=== PATIENT | male | born 1970 | race Caucasian/White ===

== ENCOUNTER 2017-05-04 08:53 | Emergency (ER) | payer OTHER ==
[2017-05-04 09:04] VITALS: BP 113/77; PULSE 71; TEMP 98.2; BMI 29.7
--- NOTE | 2017-05-04 09:41 | PDOC ---
History of Present Illness - General Chief Complaint: Toothache Stated Complaint: TOOTHACHE Time Seen by Provider: 05/04/17 09:12 History Source: Patient Exam Limitations: No Limitations - History of Present Illness Initial Comments: 05/04/17 09:52 Chief complaint: Toothache Patient 46-year-old male, on methadone, history of depression who has a toothache for one week with a broken tooth. Patient states he has an appointment with a dentist on Saturday. No fever, no difficulty swallowing or speaking. he has not taken any pain medicine except for Tylenol GENERAL/CONSTITUTIONAL: No fever, weakness. dizziness HEAD, EYES, EARS, NOSE AND THROAT: No change in vision. No ear pain or discharge. No sore throat.+ Toothache CARDIOVASCULAR: No chest pain RESPIRATORY: No shortness of breath or cough GASTROINTESTINAL: No pain, nausea, vomiting, diarrhea or constipation GENITOURINARY: No dysuria MUSCULOSKELETAL: No neck or back pain SKIN: No rash NEUROLOGIC: No headache, vertigo, loss of consciousness, or loss of sensation. GENERAL: The patient is awake, alert, and fully oriented, in no acute distress. HEAD: Normal with no signs of trauma. EYES: Pupils equal, round and reactive to light, sclera anicteric, conjunctiva clear. ENT: pharynx: no erythema, no exudate, uvula midline, +dental decay with broken tooth upper right NECK: supple CHEST: clear, nontender, rr ABD: soft, nontender EXTREMITIES: Normal range of motion, no edema. NEUROLOGICAL: Normal speech, normal gait. SKIN: Warm, Dry Past History - Past Medical History Allergies/Adverse Reactions: Allergies Allergy/AdvReac Type Severity Reaction Status Date / Time amoxicillin Allergy Nausea Verified 05/04/17 09:04 Home Medications: Ambulatory Orders Methadone [Dolophine -] 150 mg PO DAILY@0600 tablet 02/10/15 Sertraline HCl [Zoloft] 100 mg PO DAILY 03/01/15 Zolpidem Tartrate [Ambien] 10 mg PO HS 03/01/15 Omeprazole 20 mg PO DAILY 06/22/15 Alprazolam [Xanax] 0.5 mg PO Q8H PRN #0 tablet 06/27/15 Bacitracin/Polymyxin Ointment [Polysporin Ointment -] 1 applic TP BID #30 grams 02/08/16 Ibuprofen [Motrin -] 600 mg PO Q6H PRN #0 tablet 06/27/15 Sulfamethoxazole/Trimethoprim [Bactrim DS -] 1 each PO BID #20 tablet 06/27/15 Clindamycin [Cleocin -] 300 mg PO QID #28 capsule 05/04/17 Ibuprofen [Motrin -] 600 mg PO QID #28 tablet 05/04/17 Anemia: No Asthma: No Cancer: No Cardiac Disorders: No CVA: No COPD: No CHF: No Dementia: No Diabetes: No GI Disorders: No Disorders: No HTN: No Hypercholesterolemia: No Kidney Stones: No Liver Disease: No Psychiatric Problems: Yes (depression) Seizures: No Thyroid Disease: No - Surgical History Abdominal Surgery: No Appendectomy: No Cardiac Surgery: No Cholecystectomy: No Lung Surgery: No Neurologic Surgery: No Orthopedic Surgery: Yes (Left eye socket metal plate) - Reproductive History Testicular Surgery: No - Suicide/Smoking/Psychosocial Hx Smoking History: Never smoked Have you smoked in the past 12 months: Yes Number of Cigarettes Smoked Daily: 5 'Breaking Loose' booklet given: 06/22/15 Hx Alcohol Use: No Drug/Substance Use Hx: No Substance Use Type: Cocaine Hx Substance Use Treatment: Yes *Physical Exam - Vital Signs Last Vital Signs Temp Pulse Resp BP Pulse Ox 98.2 F 71 20 113/77 98 05/04/17 09:01 05/04/17 09:01 05/04/17 09:01 05/04/17 09:01 05/04/17 09:01 Medical Decision Making - Medical Decision Making 05/04/17 09:56 46-year-old male with toothache for one week, broken tooth, history of depression and on methadone, will give antibiotics, cannot take amoxicillin will give clindamycin and a prescription for Motrin, discussed with patient and he agreed with plan. He says he has an appointment with the dentist on Saturday05/04/17 10:54 I stop done outpatient no recent narcotics Discussed issues, findings, results, applicable medications and treatments and follow-up. All these were understood and all questions were answered *DC/Admit/Observation/Transfer Diagnosis at time of Disposition: Toothache - Discharge Dispostion Disposition: HOME Condition at time of disposition: Stable Admit: No - Prescriptions Prescriptions: Clindamycin [Cleocin -] 300 mg PO QID #28 capsule Ibuprofen [Motrin -] 600 mg PO QID #28 tablet - Referrals Referrals: Krish Kitchen MD [Primary Care Provider] - - Patient Instructions Printed Discharge Instructions: DI for Dental Pain Additional Instructions: Take the clindamycin 300 mg every 6 hours Take the Motrin 600 mg every 8 hours for pain Take acidophilus as discussed See dentist on Saturday Return to the ER if fever, difficulty breathing, swallowing or drooling - Post Discharge Activity
[2017-05-04] MEDS ORDERED: IBUPROFEN 600 MG TABLET (FP) PO ONE ×2 (09:50→09:56)
== END 2017-05-04 10:07 | disposition home or self-care (01) ==
LOC: JERFT 08:53
DX: K08.89 Other specified disorders of teeth and supporting structures (principal); F32.9 Major depressive disorder, single episode, unspecified; F11.20 Opioid dependence, uncomplicated
CPT/HCPCS: 99281-25

== ENCOUNTER 2018-09-22 10:50 | Emergency (ER) | payer OTHER ==
[2018-09-22 11:02] VITALS: TEMP 97.9; BMI 34.8
--- NOTE | 2018-09-22 11:23 | PDOC ---
History of Present Illness - General Chief Complaint: Chest Pain Stated Complaint: CHEST PAIN Time Seen by Provider: 09/22/18 11:23 History Source: Patient Exam Limitations: No Limitations - History of Present Illness Initial Comments: 09/22/18 11:53 48 year old male with PMH HTN, cocaine abuse, heroine abuse, methadone use, nicotine abuse, obesity presented to ED for chest pain since yesterday. Pt located his chest pain to his left chest, non-radiating, aggravated by exertion , alleviated by rest, lasting 10 minutes each time. He admitted to associated shortness of breath and palpitations. He denied fever, chills, nausea, vomiting , back pain, abdominal pain. Pt stated he had Lisinopril added to his medication regiment last Saturday when he was in Dr. Kitchen's office for a medication refill appointment. Pt denied current chest pain. Social: Cocaine abuse - last used x6 days ago Heroine abuse - last used x6 days ago Denied ETOH use. 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 Kitchne Past History - Past Medical History Allergies/Adverse Reactions: Allergies Allergy/AdvReac Type Severity Reaction Status Date / Time amoxicillin Allergy Nausea Verified 09/22/18 10:57 Home Medications: Ambulatory Orders Methadone [Dolophine -] 150 mg PO DAILY@0600 tablet 02/10/15 Sertraline HCl [Zoloft] 100 mg PO DAILY 03/01/15 Zolpidem Tartrate [Ambien] 10 mg PO HS 03/01/15 Omeprazole 20 mg PO DAILY 06/22/15 Alprazolam [Xanax] 0.5 mg PO Q8H PRN #0 tablet 06/27/15 Bacitracin/Polymyxin Ointment [Polysporin Ointment -] 1 applic TP BID #30 grams 06/27/15 Ibuprofen [Motrin -] 600 mg PO Q6H PRN #0 tablet 06/27/15 Sulfamethoxazole/Trimethoprim [Bactrim DS -] 1 each PO BID #20 tablet 06/27/15 Clindamycin [Cleocin -] 300 mg PO QID #28 capsule 05/04/17 Ibuprofen [Motrin -] 600 mg PO QID #28 tablet 05/04/17 Anemia: No Asthma: No Cancer: No Cardiac Disorders: No CVA: No COPD: No CHF: No Dementia: No Diabetes: No GI Disorders: No Disorders: No HTN: No Hypercholesterolemia: No Kidney Stones: No Liver Disease: No Psychiatric Problems: Yes (depression) Seizures: No Thyroid Disease: No - Surgical History Abdominal Surgery: No Appendectomy: No Cardiac Surgery: No Cholecystectomy: No Lung Surgery: No Neurologic Surgery: No Orthopedic Surgery: Yes (Left eye socket metal plate) - Reproductive History Testicular Surgery: No - Suicide/Smoking/Psychosocial Hx Smoking History: Never smoked Have you smoked in the past 12 months: Yes Number of Cigarettes Smoked Daily: 5 'Breaking Loose' booklet given: 06/22/15 Hx Alcohol Use: No Drug/Substance Use Hx: Yes (COCAINE) Substance Use Type: Cocaine Hx Substance Use Treatment: Yes Review of Systems - Review of Systems Able to Perform ROS?: Yes Comments:: 09/22/18 11:55 General: denied fever, chills, generalized weakness. HEENT: denied sore throat, rhinorrhea, ear pain. Heart: admitted to chest pain, palpitations, lightheadedness. denied syncope, diaphoresis. Respiratory: admitted to shortness of breath. denied cough, sputum production, hemoptysis. Abdomen: denied abdominal pain, nausea, vomiting, diarrhea, constipation, blood in stool. : denied dysuria, increased urinary frequency, hematuria, urinary incontinence , flank pain. Back: denied back pain. Musculoskeletal: denied joint pain, muscle pain, joint swelling. Neurological: denied headache, numbness, tingling, weakness. Skin: denied rash, laceration, abrasion. *Physical Exam - Vital Signs Last Vital Signs Temp Pulse Resp BP Pulse Ox 97.9 F 80 16 145/91 98 09/22/18 10:58 09/22/18 10:58 09/22/18 10:58 09/22/18 10:58 09/22/18 10:58 - Physical Exam Comments: 09/22/18 11:56 Constitutional: Well-nourished, Well-developed, appearing stated age. HEENT: head is normocephalic, atraumatic. EOMI. PERRLA. Neck: supple. Full ROM. Heart: regular rhythm. no murmurs, rubs or gallops. Lungs: clear to auscultation bilaterally. no crackles, rhonchi or wheezing. no stridor. Abdomen: soft, nontender. normal bowel sounds. no rebound, guarding, masses. Extremities: peripheral pulses intact. no lower extremity edema. Neurological: CN 2-12 grossly intact. moves all four extremities. Psych: awake, alert, oriented x3. follows commands. answers questions appropriately. Skin: multiple ecchymoses to bilateral arms. diffuse indurated skin to bilateral arms. Procedures - Bedside Ultrasound Remarks: 09/22/18 12:24 US Guided IV line placed in right forearm. -Pt requested IV line to be placed in forearm over upper arm secondary to comfort -The vein was identified with compression -The overlying skin was prepped with an alcohol swab -The needle was advanced under US guidance and visualized to enter the vessel -Flashback was observed -The line did not flush smoothly, and was removed. 09/22/18 13:08 US Guided IV line placed by Dr. Jiang, ER Resident. Heart Score/ECG Review - History History: Slightly suspicious - Electrocardiogram EKG: Normal - Age Age: 45-65 - Risk Factors Risk Factors Heart Score: Yes Hx Hypertension, Yes Smoking History, Yes Hx Obesity Based on the list above the patient has:: >/=3 risk factors or Hx atherosclerotic disease ED Treatment Course - LABORATORY CBC & Chemistry Diagram: 09/22/18 11:24 09/22/18 11:24 Medical Decision Making - Medical Decision Making 09/22/18 11:56 48 year old male with above PMH presented to ED for exertional chest pain, lasting 10 minutes at a time, alleviated by rest. Initial Vital Signs Temp Pulse Resp BP Pulse Ox 97.9 F 80 16 145/91 98 09/22/18 10:58 09/22/18 10:58 09/22/18 10:58 09/22/18 10:58 09/22/18 10:58 Afebrile. No tachycardia. No tachypnea. Mild hypertension. No hypoxia on room air. Labs ordered: CBC, CMP, troponin Imaging ordered: CXR Medications ordered: ASA 162 chew once, Tylenol IV EKG performed at 1044: rate 73, regular rhythm, normal axis, normal intervals, no acute ST changes. 09/22/18 12:25 Vital Signs Temperature 97.9 F 09/22/18 10:58 Pulse Rate 62 09/22/18 12:03 Respiratory Rate 16 09/22/18 11:24 Blood Pressure 138/94 09/22/18 11:24 O2 Sat by Pulse Oximetry (%) 98 09/22/18 12:03 Afebrile. No tachycardia. No tachypnea. Mild hypertension, improving. No hypoxia on room air. CBC WBC 5.5 K/mm3 (4.0-10.0) 09/22/18 11:24 RBC 4.38 M/mm3 (4.00-5.60) 09/22/18 11:24 Hgb 12.2 GM/dL (11.7-16.9) 09/22/18 11:24 Hct 35.6 % (35.4-49) 09/22/18 11:24 MCV 81.3 fl (80-96) 09/22/18 11:24 MCH 27.9 pg (25.7-33.7) 09/22/18 11:24 MCHC 34.4 g/dl (32.0-35.9) 09/22/18 11:24 RDW 15.0 % (11.9-15.9) 09/22/18 11:24 Plt Count 226 K/MM3 (134-434) 09/22/18 11:24 MPV 7.2 fl (7.5-11.1) L 09/22/18 11:24 Absolute Neuts (auto) 3.3 K/mm3 (1.5-8.0) 09/22/18 11:24 Neutrophils % 59.2 % (42.8-82.8) D 09/22/18 11:24 Lymphocytes % 28.0 % (8-40) D 09/22/18 11:24 Monocytes % 9.5 % (3.8-10.2) D 09/22/18 11:24 Eosinophils % 2.4 % (0-4.5) D 09/22/18 11:24 Basophils % 0.9 % (0-2.0) 09/22/18 11:24 Nucleated RBC % 0 % (0-0) 09/22/18 11:24 No leukocytosis. No anyemia. Normal MCV. 09/22/18 13:13 CMP Sodium 138 mmol/L (136-145) 09/22/18 11:24 Potassium 4.3 mmol/L (3.5-5.1) 09/22/18 11:24 Chloride 104 mmol/L (98-107) 09/22/18 11:24 Carbon Dioxide 30 mmol/L (21-32) 09/22/18 11:24 Anion Gap 5 MMOL/L (8-16) L 09/22/18 11:24 BUN 7 mg/dL (7-18) 09/22/18 11:24 Creatinine 1.2 mg/dL (0.55-1.3) 09/22/18 11:24 Creat Clearance w eGFR 64.09 (>60) 09/22/18 11:24 Random Glucose 109 mg/dL (74-106) H 09/22/18 11:24 Calcium 8.6 mg/dL (8.5-10.1) 09/22/18 11:24 Total Bilirubin 0.6 mg/dL (0.2-1) 09/22/18 11:24 AST 27 U/L (15-37) 09/22/18 11:24 ALT 17 U/L (13-61) 09/22/18 11:24 Alkaline Phosphatase 52 U/L (45-117) 09/22/18 11:24 Troponin I < 0.02 ng/ml (0.00-0.05) 09/22/18 11:24 Total Protein 6.7 g/dl (6.4-8.2) 09/22/18 11:24 Albumin 3.1 g/dl (3.4-5.0) L 09/22/18 11:24 TSH 3.72 uIU/ml (0.358-3.74) 09/22/18 11:24 No electrolyte abnormalities. No KI. No transaminitis. Normal troponin. Normal TSH. CXR report: no acute chest pathology. My and Dr. Chou's read: sharp costophrenic angles, no cardiomegaly, no infiltrate, no large pneumothorax. Pending second troponin. 09/22/18 14:34 Second troponin normal. Pt reassessed, reported no chest pain. Pt is sitting upright in the chair, listening to his music, and using his phone. Results explained to patient. Pt informed of need to follow up with Cardiology. Pt given appointment with Dr. Glasgow's office October 09 at 0300PM. Pt given referral. Pt discharged. *DC/Admit/Observation/Transfer Diagnosis at time of Disposition: Chest pain - Discharge Dispostion Disposition: HOME Condition at time of disposition: Improved Decision to Admit order: No - Referrals Referrals: Krish Kitchen MD [Primary Care Provider] - Frantz Glasgow MD [Staff Physician] - - Patient Instructions Printed Discharge Instructions: DI for Chest Pain Additional Instructions: You were seen today for chest pain. Your lab work was normal. Your EKG was normal. Follow up with a Cloth D[employer]ing Range Tender within the week, I have provided you with a referral with Dr. Glasgow. You have an appointment at the [facility] on October 09 at 0300 PM. The phone number is [phone]. Follow up with your primary care doctor within the week. Bring all paperwork given to you today to your appointments. Take Tylenol over the counter for pain, take as advised on label. Return to the Emergency Department for increasing pain, pain that does not resolve after 20 minutes, shortness of breath, fever/chills/sweats, vomiting, severe back pain, severe abdominal pain, lightheadedness like you may pass out, palpitations, or any other new, worsening or concerning symptoms. - Post Discharge Activity Forms/Work/School Notes: Back to Work
[2018-09-22 12:03] VITALS: BP 138/94; PULSE 62
[2018-09-22 12:08] LABS: BASO % 0.9 % (0-2.0); EOS % 2.4 % (0-4.5); HEMATOCRIT 35.6 % (35.4-49); HEMOGLOBIN 12.2 GM/dL (11.7-16.9); MCH 27.9 pg (25.7-33.7); MCHC 34.4 g/dl (32.0-35.9); MEAN CELL VOLUME 81.3 fl (80-96); MEAN PLT VOLUME 7.2 fl (7.5-11.1); MONO % 9.5 % (3.8-10.2); NEUT % 59.2 % (42.8-82.8); PLATELET COUNT 226 K/MM3 (134-434); RBC 4.38 M/mm3 (4.00-5.60); WHITE BLOOD COUNT 5.5 K/mm3 (4.0-10.0)
[2018-09-22] MEDS ORDERED: ASPIRIN 81 MG CHEWABLE TABLETS PO ONE (12:13)
[2018-09-22] MEDS ORDERED: ACETAMINOPHEN 1000 MG/100 ML VIAL (NON FORMULARY) IVPB ONE (12:22)
[2018-09-22] MEDS ORDERED: ACETAMINOPHEN INJECTION 100 ML IVPB ONE (12:59)
[2018-09-22] MEDS ORDERED: ASPIRIN 81 MG CHEWABLE TABLETS ONE (12:59)
[2018-09-22 13:10] LABS: ALBUMIN 3.1 g/dl (3.4-5.0); ALK PHOS 52 U/L (45-117); BILIRUBIN,TOTAL 0.6 mg/dL (0.2-1); BLOOD UREA NITROGEN 7 mg/dL (7-18); CALCIUM 8.6 mg/dL (8.5-10.1); CHLORIDE 104 mmol/L (98-107); CO2 30 mmol/L (21-32); CREATININE 1.2 mg/dL (0.55-1.3); GLUCOSE,RANDOM 109 mg/dL (74-106); SGPT/ALT 17 U/L (13-61); SODIUM 138 mmol/L (136-145); TOT PROT 6.7 g/dl (6.4-8.2)
[2018-09-22 13:11] LABS: ANION GAP 5 MMOL/L (8-16); POTASSIUM 4.3 mmol/L (3.5-5.1); SGOT/AST 27 U/L (15-37)
--- NOTE | 2018-09-22 13:11 | PDOC ---
Documentation entered by Toy Diego SCRIBE, acting as scribe for Dillon Chou MD. Dillon Chou MD: This documentation has been prepared by the Johnathon suarez Matthew, SCRIBE, under my direction and personally reviewed by me in its entirety. I confirm that the documentation accurately reflects all work, treatment, procedures, and medical decision making performed by me. Attending Attestation - Resident Resident Name: Winter Miller - ED Attending Attestation I have performed the following: I have examined & evaluated the patient, The case was reviewed & discussed with the resident, I agree w/resident's findings & plan, Exceptions are as noted - HPI HPI: 09/22/18 12:53 Patient is a 48 year old male with a significant past medical history of HTN,, obesity, who presents to the ED with complaints of chest pain that began yesterday morning. Patient reports experiencing left sided chest pain that he states began saturday morning, and has been intermittent since then. He reports not coming into the ED initially because he felt that it was a result of a hangover from partying on saturday night, and would subside over time. Patient states chest pain is a deep vague sensation that occurs multiple times per day even at rest and lasts up to 3 minutes long. He reports experiencing associated symptoms of nausea, and diarrhea. Denies sob. Denies nausea, vomiting. Denies fevers, chills. Denies contact with sick individuals, out of state travelling. Denies diarrhea, constipation. Denies dysuria, hematuria. Denies any other symptoms. Allergies: Amoxicillin Social history: Former smoker. Current vape user. Current cocaine abuse, heroine abuse, methadone use, nicotine abuse. Surgical history: Left eye socket metal plate Vp Lab: none PCP: Dr. Kitchen - Physicial Exam PE: 09/22/18 12:54 Vitals: Triage Vital signs reviewed General Appearance: no acute distress, well nourished well developed Head: Atraumatic Neck: Supple; No Nuchal rigidity Chest Wall: Nontender Cardiac: Regular rate and rhythm, no murmurs, no rubs, no gallops Lungs: Clear to auscultation bilateral, good air movement bilaterally Abdomen: Soft, non distended, normal bowel sounds, non tender to palpation Extremities: Full range of motion to all extremities, no cyanosis, clubbing, or edema Skin: Warm and dry, no rashes or lesions, no rash, no petechiae Psych: Normal mood, normal affect - Medical Decision Making 09/22/18 14:18 48 years old active tobacco last cocaine use on Saturday tried to inject but was unable to presents with vague chest discomfort denies pressure stabbing pain occurs sometimes at rest sometimes with standing Nonischemic EKG no fever no chills Laboratory analysis within normal limits patient's heart score is 3 We'll check second troponin if negative will arrange for outpatient follow-up with cardiology this week. Heart Score/ECG Review - ECG Impressions Comment:: 09/22/18 14:18 EKG performed at 1044 demonstrates normal sinus rhythm no ST elevations or T- wave inversions Interpreted by me.
--- NOTE | 2018-09-22 15:09 | EKG ---
Test Reason : Blood Pressure : / mmHG Vent. Rate : 073 BPM Atrial Rate : 073 BPM P-R Int : 170 ms QRS Dur : 106 ms QT Int : 434 ms P-R-T Axes : 049 036 044 degrees QTc Int : 478 ms NORMAL SINUS RHYTHM NORMAL ECG WHEN COMPARED WITH ECG OF 19-NOV-2015 20:07, NO SIGNIFICANT CHANGE WAS FOUND Confirmed by CAITY VELA MD ([id number]) on 09/22/2018 3:09:05 PM Referred By: Confirmed By:CAITY VELA MD
== END 2018-09-22 15:08 | disposition home or self-care (01) ==
LOC: JER 10:50
PROC: 3E033NZ Introduction of Analgesics, Hypnotics, Sedatives into Peripheral Vein, Percutaneous Approach (ICD-10-PCS; principal; 2018-09-22)
DX: R07.9 Chest pain, unspecified (principal); I10 Essential (primary) hypertension; F11.20 Opioid dependence, uncomplicated; F14.10 Cocaine abuse, uncomplicated; Z72.0 Tobacco use; E66.9 Obesity, unspecified; Z68.34 Body mass index [BMI] 34.0-34.9, adult
CPT/HCPCS: 36415; 71045-TC-FY; 80053; 84443; 84484; 85025; 93005; 93010; 96374; 99284-25; J0131

== ENCOUNTER 2019-01-26 07:35 | Inpatient (IN) | payer OTHER ==
--- NOTE | 2019-01-26 08:32 | PDOC ---
History of Present Illness <Leo Bautista - Last Filed: 01/26/19 10:25> - General History Source: Patient Exam Limitations: No Limitations <Elen Solano - Last Filed: 01/26/19 14:18> <Dillon Chou - Last Filed: 01/26/19 16:11> - General Chief Complaint: Abscess Boil Stated Complaint: Abscess LEG AND HAND Time Seen by Provider: 01/26/19 08:00 Past History <Leo Bautista - Last Filed: 01/26/19 10:25> - Travel Traveled outside of the country in the last 30 days: No Close contact w/someone who was outside of country & ill: No - Past Medical History Anemia: No Asthma: No Cancer: No Cardiac Disorders: No CVA: No COPD: No CHF: No Dementia: No Diabetes: No GI Disorders: No Disorders: No HTN: Yes Hypercholesterolemia: No Kidney Stones: No Liver Disease: No Psychiatric Problems: Yes (depression) Seizures: No Thyroid Disease: No - Surgical History Abdominal Surgery: No Appendectomy: No Cardiac Surgery: No Cholecystectomy: No Lung Surgery: No Neurologic Surgery: No Orthopedic Surgery: Yes (Left eye socket metal plate) - Reproductive History Testicular Surgery: No - Suicide/Smoking/Psychosocial Hx Smoking History: Never smoked Have you smoked in the past 12 months: Yes Number of Cigarettes Smoked Daily: 5 'Breaking Loose' booklet given: 06/22/15 Hx Alcohol Use: Yes Drug/Substance Use Hx: Yes Substance Use Type: Cocaine Hx Substance Use Treatment: Yes <Elen Solano - Last Filed: 01/26/19 14:18> <Dillon Chou - Last Filed: 01/26/19 16:11> - Past Medical History Allergies/Adverse Reactions: Allergies Allergy/AdvReac Type Severity Reaction Status Date / Time amoxicillin Allergy Nausea Verified 01/26/19 07:43 Home Medications: Ambulatory Orders Methadone [Dolophine -] 150 mg PO DAILY@0600 tablet 02/10/15 Sertraline HCl [Zoloft] 100 mg PO DAILY 03/01/15 Zolpidem Tartrate [Ambien] 10 mg PO HS 03/01/15 Omeprazole 20 mg PO DAILY 06/22/15 Alprazolam [Xanax] 0.5 mg PO Q8H PRN #0 tablet 06/27/15 Bacitracin/Polymyxin Ointment [Polysporin Ointment -] 1 applic TP BID #30 grams 06/27/15 Ibuprofen [Motrin -] 600 mg PO Q6H PRN #0 tablet 06/27/15 Sulfamethoxazole/Trimethoprim [Bactrim DS -] 1 each PO BID #20 tablet 06/27/15 Clindamycin [Cleocin -] 300 mg PO QID #28 capsule 05/04/17 Ibuprofen [Motrin -] 600 mg PO QID #28 tablet 05/04/17 Review of Systems - Review of Systems Able to Perform ROS?: Yes Comments:: 01/26/19 09:35 CONSTITUTIONAL: Absent: fever, chills, diaphoresis, generalized weakness, malaise, loss of appetite HEENT: Absent: rhinorrhea, nasal congestion, throat pain, throat swelling, difficulty swallowing, mouth swelling, ear pain, eye pain, visual Changes CARDIOVASCULAR: Present: chest pain Absent: loss of consciousness, palpitations, irregular heart rate, peripheral edema RESPIRATORY: Absent: cough, shortness of breath, dyspnea with exertion, orthopnea, wheezing, stridor, hemoptysis GASTROINTESTINAL: Absent: abdominal pain, abdominal distension, nausea, vomiting, diarrhea, constipation, melena, hematochezia GENITOURINARY: Absent: dysuria, frequency, urgency, hesitancy, hematuria, flank pain, genital pain MUSCULOSKELETAL: Absent: myalgia, arthralgia, joint swelling SKIN: Present: abscess Absent: rash, itching, pallor HEMATOLOGIC/IMMUNOLOGIC: Absent: easy bleeding, easy bruising, lymphadenopathy, frequent infections ENDOCRINE: Absent: unexplained weight gain, unexplained weight loss, heat intolerance, cold intolerance NEUROLOGIC: Absent: headache, focal weakness or paresthesias, dizziness, unsteady gait, seizure, mental status changes, bladder or bowel incontinence PSYCHIATRIC: Absent: anxiety, depression, suicidal or homicidal ideation, hallucinations. Is the patient limited Danish proficient: No <Elen Solano - Last Filed: 01/26/19 14:18> *Physical Exam - Vital Signs Last Vital Signs Temp Pulse Resp BP Pulse Ox 98.1 F 86 16 135/85 99 01/26/19 07:40 01/26/19 07:40 01/26/19 07:40 01/26/19 07:40 01/26/19 07:40 <Leo Bautista - Last Filed: 01/26/19 10:25> - Vital Signs Last Vital Signs Temp Pulse Resp BP Pulse Ox 98.1 F 86 16 135/85 99 01/26/19 07:40 01/26/19 07:40 01/26/19 07:40 01/26/19 07:40 01/26/19 07:40 - Physical Exam Comments: 01/26/19 09:43 GENERAL: Well developed, well nourished. Awake and alert. No acute distress. HEENT: Normocephalic, atraumatic. PERRLA, EOMI. No conjunctival pallor. Sclera are non- icteric. Moist mucous membranes. Oropharynx is clear. NECK: Supple. Full ROM. No JVD. Carotid pulses 2+ and symmetric, without bruits. No thyromegaly. No lymphadenopathy. CARDIOVASCULAR: Regular rate and rhythm. No murmurs, rubs, or gallops. Distal pulses are 2+ and symmetric. PULMONARY: No evidence of respiratory distress. Lungs clear to auscultation bilaterally. No wheezing, rales or rhonchi. ABDOMINAL: Soft. Non-tender. Non-distended. No rebound or guarding. No organomegaly. Normoactive bowel sounds. MUSCULOSKELETAL Normal range of motion at all joints. No bony deformities or tenderness. No CVA tenderness. EXTREMITIES: No cyanosis. No clubbing. No edema. No calf tenderness. SKIN: 3cm abscess to the R medial lower extremity with fluctunace. No overlying cellulitis. Warmth to the R thumb consistent with cellulitis without fluctuance. Warm and dry. Normal capillary refill. No rashes. No jaundice. NEUROLOGICAL: Alert, awake, appropriate. Cranial nerves 2-12 intact. No deficits to light touch and temperature in face, upper extremities and lower extremities. No motor deficits in the in face, upper extremities and lower extremities. Normoreflexic in the upper and lower extremities. Normal speech. Toes are down- going bilaterally. Gait is normal without ataxia. PSYCHIATRIC: Cooperative. Good eye contact. Appropriate mood and affect. <Elen Solano - Last Filed: 01/26/19 14:18> - Vital Signs Last Vital Signs Temp Pulse Resp BP Pulse Ox 98.1 F 86 16 135/85 99 01/26/19 07:40 01/26/19 07:40 01/26/19 07:40 01/26/19 07:40 01/26/19 07:40 <Dillon Chou - Last Filed: 01/26/19 16:11> Procedures - Incision and Drainage I&D Site: Right: Leg Betadine cleansed: No (alcohol) Anesthesia: 2% Lidocaine Volume(ml): 7 Blade Size: 10 Iodinated Packin in Plain Packing: No Complications: none Dressing: Yes (gauze and tape) <Leo Bautista - Last Filed: 01/26/19 10:25> ED Treatment Course - LABORATORY CBC & Chemistry Diagram: 01/26/19 10:00 01/26/19 10:00 - ADDITIONAL ORDERS Additional order review: 01/26/19 10:00 RBC 4.73 MCV 80.8 MCHC 34.3 RDW 14.5 MPV 7.1 L Neutrophils % 66.0 Lymphocytes % 18.9 D Monocytes % 13.5 H Eosinophils % 1.1 Basophils % 0.5 <Leo Bautista - Last Filed: 01/26/19 10:25> - LABORATORY CBC & Chemistry Diagram: 01/26/19 10:00 01/26/19 10:00 <Elen Solano - Last Filed: 01/26/19 14:18> - LABORATORY CBC & Chemistry Diagram: 01/26/19 10:00 01/26/19 10:00 - ADDITIONAL ORDERS Additional order review: Laboratory Results 01/26/19 01/26/19 01/26/19 11:15 11:15 10:00 Sodium Potassium Chloride Carbon Dioxide Anion Gap BUN Creatinine Est GFR (CKD-EPI)AfAm Est GFR (CKD-EPI)NonAf Random Glucose Calcium Total Bilirubin AST ALT Alkaline Phosphatase Creatine Kinase Creatine Kinase Index No Result Required. CK-MB (CK-2) No Result Required. Troponin I Total Protein Albumin Urine Color Dk yellow Urine Appearance Cloudy Urine pH 5.5 D Ur Specific [place] 1.020 Urine Protein Negative Urine Glucose (UA) Negative Urine Ketones Negative Urine Blood Negative Urine Nitrite Negative Urine Bilirubin Negative Urine Urobilinogen 1.0 Ur Leukocyte Esterase Negative Opiates Screen Positive A* Methadone Screen Positive A* Barbiturate Screen Negative Phencyclidine Screen Negative Ur Amphetamines Screen Negative MDMA (Ecstasy) Screen Negative Benzodiazepines Screen Positive A* Cocaine Screen Positive A* U Marijuana (THC) Screen Negative 01/26/19 01/26/19 10:00 10:00 Sodium 138 Potassium 3.8 Chloride 100 Carbon Dioxide 30 Anion Gap 8 BUN 10.6 Creatinine 1.2 Est GFR (CKD-EPI)AfAm 81.23 Est GFR (CKD-EPI)NonAf 70.09 Random Glucose 91 Calcium 8.8 Total Bilirubin 1.2 H AST 69 H ALT 52 Alkaline Phosphatase 124 H Creatine Kinase 597 H Creatine Kinase Index 3.0 CK-MB (CK-2) 18.0 H Troponin I 2.95 H* Total Protein 7.5 Albumin 3.5 Urine Color Urine Appearance Urine pH Ur Specific [place] Urine Protein Urine Glucose (UA) Urine Ketones Urine Blood Urine Nitrite Urine Bilirubin Urine Urobilinogen Ur Leukocyte Esterase Opiates Screen Methadone Screen Barbiturate Screen Phencyclidine Screen Ur Amphetamines Screen MDMA (Ecstasy) Screen Benzodiazepines Screen Cocaine Screen U Marijuana (THC) Screen 01/26/19 10:00 RBC 4.73 MCV 80.8 MCHC 34.3 RDW 14.5 MPV 7.1 L Neutrophils % 66.0 Lymphocytes % 18.9 D Monocytes % 13.5 H Eosinophils % 1.1 Basophils % 0.5 - Medications Given in the ED: ED Medications Discontinued Medications Generic Name Dose Route Start Last Admin Trade Name Martha PRN Reason Stop Dose Admin Acetaminophen 650 mg 01/26/19 10:22 01/26/19 11:19 Tylenol - PO 01/26/19 10:23 650 mg ONCE ONE Administration Alprazolam 0.25 mg 01/26/19 11:35 01/26/19 12:45 Xanax - PO 01/26/19 11:36 0.25 mg ONCE ONE Administration Aspirin 325 mg 01/26/19 11:33 01/26/19 12:45 Asa - PO 01/26/19 11:34 325 mg ONCE ONE Administration Cephalexin HCl 500 mg 01/26/19 10:22 01/26/19 11:19 Keflex - PO 01/26/19 10:23 500 mg ONCE ONE Administration Sodium Chloride 1,000 mls @ 1,000 mls/hr 01/26/19 08:38 01/26/19 10:59 Normal Saline - IV 01/26/19 09:37 Not Given ASDIR STA Sodium Chloride 1,000 mls @ 1,000 mls/hr 01/26/19 11:34 01/26/19 12:45 Normal Saline - IV 01/26/19 12:33 1,000 mls/hr ASDIR STA Administration Vancomycin HCl 1,000 mg/ 250 mls @ 166.667 mls/hr 01/26/19 11:33 01/26/19 12: 45 Dextrose IVPB 01/26/19 13:02 166.667 mls/hr ONCE ONE Administration Lidocaine HCl 5 mg 01/26/19 08:52 01/26/19 10:59 Xylocaine 2% SQ 01/26/19 08:53 5 mg ONCE ONE Administration Trimethoprim/Sulfamethoxazole 1 each 01/26/19 10:22 01/26/19 11:19 Bactrim Ds - PO 01/26/19 10:23 1 each ONCE ONE Administration <Dillon Chou - Last Filed: 01/26/19 16:11> Medical Decision Making - Medical Decision Making 01/26/19 09:46 The patient is a 48 y/o M with PMH of polysubstance abuse, HTN, depression, presents to the ER with two days of abscess to his R leg, cellulitis to his R hand and chest pain. The patient states he was at a concert on Saturday night into Saturday and states he did " a lot of drugs, but I don't know what I used" . When asked if he shot up in the areas of his abscess, he is unsure but thinks it's a possibility. He also notes a dull achy chest discomfort which has been present since Saturday. Denies fevers, chills, difficulty breathing, shortness of breath, n/v/d. PCP: Dr. Breen A/P: Abscess/Chest pain On exam pt with a 3cm round area of fluctuance and induration to the R medial leg. Also with cellulitis to the overlying R 1st digit. No associated swelling or fluctuance. Heart with RRR, S1S2 present. No m/r/g I&D performed by Dr. Moreno and Dr. Bautista of the [facility], wound culture sent Chest pain work up and Utox sent Bactrim and keflex given for the cellulitis/abscess Re-evaluate 01/26/19 11:44 (+) troponin of 2.75; elevated CKMB and CK as well EK BPM, NSR. Normal intervals and axis. No acute ST-T wave changes DDx includes: NSTEMI, cocaine induced, endocarditis Full dose aspirin given Vancomycin, blood cultures x3, Echo ordered at this time Hold a/c at this time Case discussed with Dr. Effie Breen paged for tele admission 01/26/19 11:53 Dr. Malave admitting for Dr. Breen. Accepts pt for Tele Will page Dr. Jacob for cards consult <Elen Solano - Last Filed: 01/26/19 14:18> - Medical Decision Making 01/26/19 16:11 I reviewed the case of the mid-level practitioner and was available for consultation while in the emergency department <Dillon Chou - Last Filed: 01/26/19 16:11> *DC/Admit/Observation/Transfer <Leo Bautista - Last Filed: 01/26/19 10:25> - Discharge Dispostion Decision to Admit order: Yes <Elen Solano - Last Filed: 01/26/19 14:18> <Dillon Chou - Last Filed: 01/26/19 16:11> Diagnosis at time of Disposition: Abscess, Substance abuse, Elevated troponin - Discharge Dispostion Condition at time of disposition: Guarded
[2019-01-26] MEDS ORDERED: SODIUM CHLORIDE 1,000 ML IV STA ×2 (08:38→11:34)
[2019-01-26] MEDS ORDERED: LIDOCAINE HCL 2% (50ML VIAL) SQ ONE (08:52)
[2019-01-26 10:15] LABS: BASO % 0.5 % (0-2.0); EOS % 1.1 % (0-4.5); HEMATOCRIT 38.3 % (35.4-49); HEMOGLOBIN 13.1 GM/dL (11.7-16.9); LYMPH % 18.9 % (8-40); MCH 27.7 pg (25.7-33.7); MCHC 34.3 g/dl (32.0-35.9); MEAN CELL VOLUME 80.8 fl (80-96); MEAN PLT VOLUME 7.1 fl (7.5-11.1); MONO % 13.5 % (3.8-10.2); PLATELET COUNT 190 K/MM3 (134-434); RBC 4.73 M/mm3 (4.00-5.60); RDW 14.5 % (11.9-15.9); WHITE BLOOD COUNT 6.4 K/mm3 (4.0-10.0)
[2019-01-26] MEDS ORDERED: CEPHALEXIN MONOHYDRATE 500 MG CAPSULE (UD) PO ONE (10:22)
[2019-01-26] MEDS ORDERED: ACETAMINOPHEN 325 MG TABLET (FP) PO ONE (10:22)
[2019-01-26] MEDS ORDERED: SULFAMETHOXAZOLE/TRIMETHOPRIM 800MG/160MG D.S. TABLET PO ONE (10:22)
[2019-01-26 10:38] LABS: ALBUMIN 3.5 g/dl (3.4-5.0); BILIRUBIN,TOTAL 1.2 mg/dL (0.2-1); BLOOD UREA NITROGEN 10.6 mg/dL (7-18); CALCIUM 8.8 mg/dL (8.5-10.1); CREATININE 1.2 mg/dL (0.55-1.3); POTASSIUM 3.8 mmol/L (3.5-5.1); TOT PROT 7.5 g/dl (6.4-8.2)
[2019-01-26] MEDS ORDERED: ACETAMINOPHEN 325 MG TABLET (FP) ONE (11:07)
[2019-01-26] MEDS ORDERED: CEPHALEXIN MONOHYDRATE 500 MG CAPSULE (UD) ONE (11:08)
[2019-01-26] MEDS ORDERED: SULFAMETHOXAZOLE/TRIMETHOPRIM 800MG/160MG D.S. TABLET ONE (11:08)
--- NOTE | 2019-01-26 11:25 | EKG ---
Test Reason : Blood Pressure : / mmHG Vent. Rate : 068 BPM Atrial Rate : 068 BPM P-R Int : 166 ms QRS Dur : 108 ms QT Int : 442 ms P-R-T Axes : 030 027 045 degrees QTc Int : 469 ms NORMAL SINUS RHYTHM NORMAL ECG WHEN COMPARED WITH ECG OF 22-SEP-2018 10:44, NO SIGNIFICANT CHANGE WAS FOUND Confirmed by CAITY VELA MD ([id number]) on 01/26/2019 11:24:42 AM Referred By: Confirmed By:CAITY VELA MD
[2019-01-26 11:26] LABS: PH,URINE 5.5 (5.0-8.0); URINE APPEARANCE CLOUDY; URINE BILIRUBIN NEGATIVE (NEGATIVE); URINE COLOR DK YELLOW; URINE GLUCOSE (UA) NEGATIVE (NEGATIVE); URINE KETONE NEGATIVE (NEGATIVE); URINE LEUK ESTERASE NEGATIVE (NEGATIVE); URINE NITRITE NEGATIVE (NEGATIVE); URINE PROTEIN NEGATIVE (NEGATIVE)
[2019-01-26] MEDS ORDERED: ASPIRIN 325 MG TABLET PO ONE (11:33)
[2019-01-26] MEDS ORDERED: VANCOMYCIN 1,000 MG in DEXTROSE 5%-WATER - 250 ML IVPB ONE (11:33)
[2019-01-26] MEDS ORDERED: ALPRAZolam 0.25 MG TABLET PO ONE (11:35)
[2019-01-26 11:51] LABS: PHENCYCLIDINE,URINE NEGATIVE ng/ml (CUTOFF=25); URINE AMPHETAMINES NEGATIVE ng/ml (CUTOFF=500); URINE BARBITURATES NEGATIVE ng/ml (CUTOFF=200)
[2019-01-26 12:14] LABS: COCAINE, UR POSITIVE ng/ml (CUTOFF=300); OPIATES, URI POSITIVE ng/ml (CUTOFF=300); URINE BENZODIAZEPINES POSITIVE ng/ml (CUTOFF=200)
[2019-01-26 12:15] LABS: METHADONE, UR POSITIVE ng/ml (CUTOFF=300)
[2019-01-26] MEDS ORDERED: ASPIRIN 325 MG ENTERIC COATED TABLET (FP) ONE (12:53)
[2019-01-26] MEDS ORDERED: ALPRAZolam 0.25 MG TABLET ONE (12:53)
[2019-01-26] MEDS ORDERED: VANCOMYCIN 1 GRAM (PRE-DOCKED) 1,000 MG/250 ML BAG IVPB ONE (12:53)
[2019-01-26] MEDS ORDERED: METHADONE HCL 10 MG TABLET (FOR DETOX USE ONLY) PO ONE (15:09)
[2019-01-26] MEDS ORDERED: METHADONE HCL 10 MG TABLET ONE (15:15)
[2019-01-26] MEDS ORDERED: METHADONE HCL 40 MG DISPERSABLE TABLET ONE (15:15)
--- NOTE | 2019-01-26 15:20 | CON.CARD ---
Consult Consult Specialty:: Cardiology Referred by:: ER Reason for Consultation:: chest pain - History of Present Illness Chief Complaint: chest pain History of Present Illness: 48-year-old man with past medical history of hypogonadism being on testosterone supplementation for the past month, obesity, polysubstance abuse including frequent cocaine use and past daily IV heroin use currently IV heroin use once a month recent ER visit at [facility] for chest pain here for cardiac evaluation of chest pain. He last used cocaine 3 days ago, came to the ER with a right lower leg abcess which was lanced, and fever, chills, diarrhea. He also has been having chest pain for two days, episodic, nonexertional without associated symptoms. No ECG changes. Troponin is elevated. Echo 10/15/18: nlef Treadmill ECG Stress Test 10/15/18: 10 minutes Davin 100% MPHR No ECG changes. No ischemia. - Past Medical History Psych: Yes: Addictions (on methadone maintenance) - Alcohol/Substance Use Hx Alcohol Use: Yes History of Substance Use: reports: Cocaine, Heroin - Smoking History Smoking history: Never smoked Have you smoked in the past 12 months: Yes Aproximately how many cigarettes per day: 5 - Social History ADL: Independent History of Recent Travel: No Home Medications - Allergies Allergies/Adverse Reactions: Allergies Allergy/AdvReac Type Severity Reaction Status Date / Time amoxicillin Allergy Nausea Verified 01/26/19 07:43 - Home Medications Home Medications: Ambulatory Orders Methadone [Dolophine -] 150 mg PO DAILY@0600 tablet 02/10/15 Sertraline HCl [Zoloft] 100 mg PO DAILY 03/01/15 Zolpidem Tartrate [Ambien] 10 mg PO HS 03/01/15 Omeprazole 20 mg PO DAILY 06/22/15 Alprazolam [Xanax] 0.5 mg PO Q8H PRN #0 tablet 06/27/15 Bacitracin/Polymyxin Ointment [Polysporin Ointment -] 1 applic TP BID #30 grams 06/27/15 Ibuprofen [Motrin -] 600 mg PO Q6H PRN #0 tablet 06/27/15 Sulfamethoxazole/Trimethoprim [Bactrim DS -] 1 each PO BID #20 tablet 06/27/15 Clindamycin [Cleocin -] 300 mg PO QID #28 capsule 05/04/17 Ibuprofen [Motrin -] 600 mg PO QID #28 tablet 05/04/17 Vital Signs: Vital Signs Temperature 98.1 F 01/26/19 07:40 Pulse Rate 86 01/26/19 07:40 Respiratory Rate 16 01/26/19 07:40 Blood Pressure 135/85 01/26/19 07:40 O2 Sat by Pulse Oximetry (%) 99 01/26/19 07:40 Constitutional: Yes: No Distress, Calm Eyes: Yes: Conjunctiva Clear, EOM Intact HENT: Yes: Atraumatic, Normocephalic Neck: Yes: Trachea Midline Respiratory: Yes: CTA Bilaterally Gastrointestinal: Yes: Normal Bowel Sounds, Soft Cardiovascular: Yes: Regular Rate and Rhythm JVD: No Carotid Bruit: No PMI: Non-Displaced Heart Sounds: Yes: S1, S2 Murmur: Yes: Systolic Murmur, Grade 2 Musculoskeletal: Yes: WNL Extremities: Yes: Other (abcess right nails) Edema: No Peripheral Pulses WNL: Yes - Other Data Labs, Other Data: CBC, BMP 01/26/19 10:00 01/26/19 10:00 Troponin, BNP 01/26/19 10:00 Troponin I 2.95 H* Troponin, BNP 01/26/19 10:00 Troponin I 2.95 H* Imaging - Results Chest X-ray: Report Reviewed EKG: Report Reviewed Assessment/Plan 48-year-old man with past medical history of hypogonadism being on testosterone supplementation for the past month, obesity, polysubstance abuse including frequent cocaine use and past daily IV heroin use currently IV heroin use once a month recent ER visit at [facility] for chest pain here for cardiac evaluation of chest pain. He last used cocaine 3 days ago, came to the ER with a right lower leg abcess which was lanced, and fever, chills, diarrhea. He also has been having chest pain for two days, episodic, nonexertional without associated symptoms. No ECG changes. Troponin is elevated. Echo 10/15/18: nlef Treadmill ECG Stress Test 10/15/18: 10 minutes Davin 100% MPHR No ECG changes. No ischemia. Chest pain -elevated troponin may represent demand from infection. -Echo, he is at risk for endocarditis -defer AC for now. -poor cath candidate due to recent cocaine and heroin use. -Can use labetalol or coreg if needed, or preferably diltiazem. -Bcx -Abx per medicine.
--- NOTE | 2019-01-26 15:26 | HP ---
Admitting History and Physical - Primary Care Physician PCP: Krish Kitchen - Admission Chief Complaint: skin infection and feeling unwell History of Present Illness: 48 yo man with long h/o drug use-currently on Methadone 150 mag as per patient- daily through methadone clinic. went to a libertarian on Saturday01.23.19 and used drugs, but blacked out afterwards, so he is unsure what he took. since then has not been able to/did not have the energy to go to his methadone clinic for methadone. today he came in c/o leg swelling/abscess and hand pain, also describes chest discomfort/pressure, which subsided since he has been in the er. History Source: Patient Limitations to Obtaining History: No Limitations - Past Medical History Psych: Yes: Addictions (on methadone maintenance), Anxiety, Bipolar (?) - Past Surgical History Additional Past Surgical History: I+D of skin abscesses in the past - Smoking History Smoking history: Never smoked Have you smoked in the past 12 months: Yes Aproximately how many cigarettes per day: 5 - Alcohol/Substance Use Hx Alcohol Use: Yes History of Substance Use: reports: Cocaine, Heroin - Social History ADL: Independent History of Recent Travel: No Home Medications - Allergies Allergies/Adverse Reactions: Allergies Allergy/AdvReac Type Severity Reaction Status Date / Time amoxicillin Allergy Nausea Verified 01/26/19 07:43 - Home Medications Home Medications: Ambulatory Orders Methadone [Dolophine -] 150 mg PO DAILY@0600 tablet 02/10/15 Sertraline HCl [Zoloft] 100 mg PO DAILY 03/01/15 Zolpidem Tartrate [Ambien] 10 mg PO HS 03/01/15 Omeprazole 20 mg PO DAILY 06/22/15 Alprazolam [Xanax] 0.5 mg PO Q8H PRN #0 tablet 06/27/15 Bacitracin/Polymyxin Ointment [Polysporin Ointment -] 1 applic TP BID #30 grams 06/27/15 Ibuprofen [Motrin -] 600 mg PO Q6H PRN #0 tablet 06/27/15 Sulfamethoxazole/Trimethoprim [Bactrim DS -] 1 each PO BID #20 tablet 06/27/15 Clindamycin [Cleocin -] 300 mg PO QID #28 capsule 05/04/17 Ibuprofen [Motrin -] 600 mg PO QID #28 tablet 05/04/17 Home Medications (free text): ambien 10mg qhs. seroquel 100mg qd. xanax 1 mg qd. methadone daily Family Disease History - Family Disease History Family History: Unremarkable Review of Systems Findings/Remarks: feels anxious , diaphoretic - Review of Systems Constitutional: reports: Malaise Cardiovascular: reports: Chest Pain. denies: Shortness of Breath Respiratory: denies: Hemoptysis, Orthopnea, SOB on Exertion, Wheezing Gastrointestinal: reports: No Symptoms Breasts: reports: No Symptoms Reported Musculoskeletal: reports: No Symptoms Integumentary: reports: Erythema, Lesions Psychiatric: reports: Anxiety Physical Examination Vital Signs: Vital Signs Temperature 98.1 F 01/26/19 07:40 Pulse Rate 86 01/26/19 07:40 Respiratory Rate 16 01/26/19 07:40 Blood Pressure 135/85 01/26/19 07:40 O2 Sat by Pulse Oximetry (%) 99 01/26/19 07:40 Constitutional: Yes: Anxious, Diaphoresis Eyes: Yes: Conjunctiva Clear, EOM Intact HENT: Yes: Normocephalic Neck: Yes: Trachea Midline Cardiovascular: Yes: Regular Rate and Rhythm Respiratory: Yes: CTA Bilaterally Gastrointestinal: Yes: Normal Bowel Sounds, Soft, Abdomen, Obese Musculoskeletal: Yes: WNL Extremities: Yes: WNL Edema: No Peripheral Pulses WNL: Yes Integumentary: Yes: Other (left thumb and dorsum of hand erythematous, warm, swollen right nails dressed, s+p ID in er today) Neurological: Yes: WNL, Alert, Oriented Psychiatric: Yes: Agitated Labs: CBC, BMP 01/26/19 10:00 01/26/19 10:00 Laboratory Tests 01/26/19 01/26/19 01/26/19 10:00 10:00 10:00 WBC 6.4 RBC 4.73 Hgb 13.1 Hct 38.3 MCV 80.8 MCH 27.7 MCHC 34.3 RDW 14.5 Plt Count 190 MPV 7.1 L Absolute Neuts (auto) 4.2 Neutrophils % 66.0 Lymphocytes % 18.9 D Monocytes % 13.5 H Eosinophils % 1.1 Basophils % 0.5 Nucleated RBC % 0 Sodium 138 Potassium 3.8 Chloride 100 Carbon Dioxide 30 Anion Gap 8 BUN 10.6 Creatinine 1.2 Est GFR (CKD-EPI)AfAm 81.23 Est GFR (CKD-EPI)NonAf 70.09 Random Glucose 91 Calcium 8.8 Total Bilirubin 1.2 H AST 69 H ALT 52 Alkaline Phosphatase 124 H Creatine Kinase 597 H Creatine Kinase Index 3.0 CK-MB (CK-2) 18.0 H Troponin I 2.95 H* Total Protein 7.5 Albumin 3.5 Urine Color Urine Appearance Urine pH Ur Specific [place] Urine Protein Urine Glucose (UA) Urine Ketones Urine Blood Urine Nitrite Urine Bilirubin Urine Urobilinogen Ur Leukocyte Esterase Opiates Screen Methadone Screen Barbiturate Screen Phencyclidine Screen Ur Amphetamines Screen MDMA (Ecstasy) Screen Benzodiazepines Screen Cocaine Screen U Marijuana (THC) Screen 01/26/19 01/26/19 01/26/19 10:00 11:15 11:15 WBC RBC Hgb Hct MCV MCH MCHC RDW Plt Count MPV Absolute Neuts (auto) Neutrophils % Lymphocytes % Monocytes % Eosinophils % Basophils % Nucleated RBC % Sodium Potassium Chloride Carbon Dioxide Anion Gap BUN Creatinine Est GFR (CKD-EPI)AfAm Est GFR (CKD-EPI)NonAf Random Glucose Calcium Total Bilirubin AST ALT Alkaline Phosphatase Creatine Kinase Creatine Kinase Index No Result Required. CK-MB (CK-2) No Result Required. Troponin I Total Protein Albumin Urine Color Dk yellow Urine Appearance Cloudy Urine pH 5.5 D Ur Specific [place] 1.020 Urine Protein Negative Urine Glucose (UA) Negative Urine Ketones Negative Urine Blood Negative Urine Nitrite Negative Urine Bilirubin Negative Urine Urobilinogen 1.0 Ur Leukocyte Esterase Negative Opiates Screen Positive A* Methadone Screen Positive A* Barbiturate Screen Negative Phencyclidine Screen Negative Ur Amphetamines Screen Negative MDMA (Ecstasy) Screen Negative Benzodiazepines Screen Positive A* Cocaine Screen Positive A* U Marijuana (THC) Screen Negative 01/26/19 14:54 WBC RBC Hgb Hct MCV MCH MCHC RDW Plt Count MPV Absolute Neuts (auto) Neutrophils % Lymphocytes % Monocytes % Eosinophils % Basophils % Nucleated RBC % Sodium Potassium Chloride Carbon Dioxide Anion Gap BUN Creatinine Est GFR (CKD-EPI)AfAm Est GFR (CKD-EPI)NonAf Random Glucose Calcium Total Bilirubin AST ALT Alkaline Phosphatase Creatine Kinase 471 H Creatine Kinase Index 2.6 CK-MB (CK-2) 12.6 H Troponin I 2.47 H* Total Protein Albumin Urine Color Urine Appearance Urine pH Ur Specific [place] Urine Protein Urine Glucose (UA) Urine Ketones Urine Blood Urine Nitrite Urine Bilirubin Urine Urobilinogen Ur Leukocyte Esterase Opiates Screen Methadone Screen Barbiturate Screen Phencyclidine Screen Ur Amphetamines Screen MDMA (Ecstasy) Screen Benzodiazepines Screen Cocaine Screen U Marijuana (THC) Screen Imaging - Results Chest X-ray: Report Reviewed EKG: Report Reviewed Problem List - Problems (1) Abscess Code(s): L02.91 - CUTANEOUS ABSCESS, UNSPECIFIED (2) Elevated troponin Code(s): R74.8 - ABNORMAL LEVELS OF OTHER SERUM ENZYMES (3) Substance abuse Code(s): F19.10 - OTHER PSYCHOACTIVE SUBSTANCE ABUSE, UNCOMPLICATED (4) Methadone dependence Code(s): F11.20 - OPIOID DEPENDENCE, UNCOMPLICATED (5) Cocaine abuse with cocaine-induced disorder Code(s): F14.19 - COCAINE ABUSE WITH UNSPECIFIED COCAINE-INDUCED DISORDER Assessment/Plan positive troponin-cocaine induced cardiac stress/spasm? echo/stress test in [facility]PT[facility] showed no ischemia EKG normal asa iv hydration O2 prn trend troponin ntg as needed if pain recurs echo ordered methadone dependence-will need to call clinic in am to confirm the dose writs and nails abscess possibly due to iv/sc drug use-patient can not provide adequate history blood cultures have been drawn iv vanco given
--- NOTE | 2019-01-26 17:33 | ECHO ---
Name: LIBORIO WEI Exam:Adult Echocardiogram Study Date: 01/26/2019 03:42 PM Age: 48 yrs Reason For Study: R/O Endocarditis Height: 71 in Weight: 240 lb BSA: 2.3 m2 MMode/2D Measurements & Calculations IVSd: 1.00 cm Ao root diam: 2.6 cm LVIDd: 4.4 cm LA dimension: 2.2 cm LVIDs: 3.0 cm LVPWd: 0.99 cm LVPWs: 1.4 cm EDV(Teich): 88.2 ml ESV(Teich): 34.9 ml RV S Chase: 15.0 cm/sec Doppler Measurements & Calculations MV E max chase: 62.7 cm/sec Ao V2 max: 127.3 cm/sec MV A max chase: 48.4 cm/sec Ao max P.5 mmHg MV E/A: 1.3 Ao V2 mean: 96.3 cm/sec MV dec time: 0.15 sec Ao mean P.0 mmHg Ao V2 VTI: 27.9 cm LV V1 max P.6 mmHg TR max chase: 170.3 cm/sec LV V1 mean P.4 mmHg TR max P.6 mmHg LV V1 max: 80.5 cm/sec RVSP(TR): 21.6 mmHg LV V1 mean: 54.1 cm/sec LV V1 VTI: 17.7 cm PA V2 max: 120.8 cm/sec Med Peak E' Chase: 7.4 cm/sec PA max P.8 mmHg Med E/e': 8.5 Lat Peak E' Chase: 9.7 cm/sec Lat E/e': 6.5 RAP systole: 10.0 mmHg Procedure A complete two-dimensional transthoracic echocardiogram was performed (2D, M-mode, Doppler and color flow Doppler). Technically limited study. Left Ventricle The left ventricle is normal in size. Left ventricular systolic function is normal. Ejection Fraction = 55- 60%. No regional wall motion abnormalities noted. Right Ventricle The right ventricle is normal size. The right ventricular systolic function is normal. RV systolic TD I is 15 cm/s. Atria The left atrial size is normal. Right atrial size is normal. Mitral Valve The mitral valve is normal in structure and function. There is mild mitral regurgitation. Tricuspid Valve The tricuspid valve is normal in structure and function. There is mild tricuspid regurgitation. Aortic Valve The aortic valve is normal in structure and function. No aortic regurgitation is present. Pulmonic Valve The pulmonic valve is not well visualized. Great Vessels The aortic root is normal size. Pericardium/Pleura There is no pericardial effusion. Interpretation Summary Technically limited study The left ventricle is normal in size. Left ventricular systolic function is normal. No regional wall motion abnormalities noted. Ejection Fraction = 55-60%. The right ventricular systolic function is normal. The left atrial size is normal. Right atrial size is normal. There is mild mitral regurgitation. There is mild tricuspid regurgitation. No obvious vegetations are seen There is no pericardial effusion. Chad Kathleen MD 01/26/2019 05:32 PM
[2019-01-26] MEDS: SODIUM CHLORIDE 1,000 ML IV SCH (18:25)
[2019-01-26] MEDS: ACETAMINOPHEN 325 MG TABLET (FP) PO PRN (21:54)
[2019-01-26] MEDS: ALPRAZolam 0.25 MG TABLET PO PRN (21:54)
[2019-01-27 00:07] VITALS: BMI 32.9
[2019-01-27] MEDS ORDERED: PNEUMOC 13-VAL CONJ-DIP CRM/PF 0.5 ML DISP.SYRIN IM ONE (00:18)
[2019-01-27 06:58] LABS: BASO % 0.5 % (0-2.0); EOS % 2.5 % (0-4.5); HEMATOCRIT 34.4 % (35.4-49); HEMOGLOBIN 11.7 GM/dL (11.7-16.9); LYMPH % 29.6 % (8-40); MCH 27.7 pg (25.7-33.7); MCHC 34.1 g/dl (32.0-35.9); MEAN CELL VOLUME 81.2 fl (80-96); MEAN PLT VOLUME 7.3 fl (7.5-11.1); MONO % 12.6 % (3.8-10.2); NEUT % 54.8 % (42.8-82.8); PLATELET COUNT 197 K/MM3 (134-434); RBC 4.24 M/mm3 (4.00-5.60); RDW 13.9 % (11.9-15.9); WHITE BLOOD COUNT 5.3 K/mm3 (4.0-10.0)
[2019-01-27 07:19] LABS: ALBUMIN 3.1 g/dl (3.4-5.0); BILIRUBIN,TOTAL 0.7 mg/dL (0.2-1); CALCIUM 8.1 mg/dL (8.5-10.1); CREATININE 1.2 mg/dL (0.55-1.3); POTASSIUM 3.4 mmol/L (3.5-5.1); TOT PROT 6.6 g/dl (6.4-8.2)
[2019-01-27] MEDS ORDERED: PNEUMOCOCCAL 23 VACCINE 0.5 ML VIAL IM ONE (07:30)
[2019-01-27] MEDS ORDERED: METHADONE HCL 40 MG DISPERSABLE TABLET ONE (07:43)
[2019-01-27] MEDS ORDERED: METHADONE HCL 10 MG TABLET ONE (07:43)
[2019-01-27] MEDS: METHADONE 120 MG, METHADONE 30 MG PO SCH (07:47)
[2019-01-27] MEDS ORDERED: VANCOMYCIN HCL 1,500 MG in DEXTROSE 5%-WATER - 250 ML IVPB SCH (08:30)
--- NOTE | 2019-01-27 08:40 | PN ---
Progress Note (short form) - Note Progress Note: Feels much better today, no complaints CBC, BMP 01/27/19 05:20 Potassium 3.4 L Calcium 8.1 L Total Bilirubin AST Alkaline Phosphatase Creatine Kinase 471 H CK-MB (CK-2) 12.6 H 6.6 H Troponin I 2.47 H* 1.78 H* Albumin 3.1 L Opiates Screen Positive A* Methadone Screen Positive A* Benzodiazepines Screen Positive A* Cocaine Screen Positive A* Microbiology 01/26/19 12:07 Blood - Peripheral Venous Blood Culture - Gram pos cocci in clusters in aerobic bottlex1 Echo TDS, no obvious vegetations Vital Signs Period Temp Pulse Resp BP Sys/Avendaño Pulse Ox Last 24 Hr 98.0 F-98.5 F 65-76 17-18 120-130/70-85 97-98 S1s2 RRR Lungs cta abd soft left thumb MCP joint swelling tenderness, erythema with 2 mm vesicle vs early pustule right nails abscess with iodoform packing, minimal erythema but induration and tenderness present pos.pulses, no edema aaox3 nonfocal Cocaine induced cardiac ischemia, resolved clinically +blood culture f/up final results cont iv vanco for now, high risk for MRSA cont isolation cont methadone-150 mg confirmed with clinic Problem List - Problems (1) Abscess Code(s): L02.91 - CUTANEOUS ABSCESS, UNSPECIFIED (2) Elevated troponin Code(s): R74.8 - ABNORMAL LEVELS OF OTHER SERUM ENZYMES (3) Substance abuse Code(s): F19.10 - OTHER PSYCHOACTIVE SUBSTANCE ABUSE, UNCOMPLICATED (4) Methadone dependence Code(s): F11.20 - OPIOID DEPENDENCE, UNCOMPLICATED (5) Cocaine abuse with cocaine-induced disorder Code(s): F14.19 - COCAINE ABUSE WITH UNSPECIFIED COCAINE-INDUCED DISORDER
[2019-01-27] MEDS: ENOXAPARIN NA (PORCINE) 40 MG/0.4 ML DISP.SYRIN SQ SCH (10:03)
--- NOTE | 2019-01-27 10:04 | PN ---
Progress Note, Physician Chief Complaint: feeling much better today. no cp or sob. no fever. History of Present Illness: 48-year-old man with past medical history of hypogonadism being on testosterone supplementation for the past month, obesity, polysubstance abuse including frequent cocaine use and past daily IV heroin use currently IV heroin use once a month recent ER visit at [facility] for chest pain here for cardiac evaluation of chest pain. He last used cocaine 3 days ago, came to the ER with a right lower leg abcess which was lanced, and fever, chills, diarrhea. He also has been having chest pain for two days, episodic, nonexertional without associated symptoms. No ECG changes. Troponin is elevated. Echo 10/15/18: nlef Treadmill ECG Stress Test 10/15/18: 10 minutes Davin 100% MPHR No ECG changes. No ischemia. echo 01/26/19 normal EF, no vegitation. no change 10/15/18. - Current Medication List Current Medications: Active Medications Acetaminophen (Tylenol -) 650 mg PO Q6H PRN PRN Reason: PAIN OR FEVER Last Admin: 01/26/19 21:54 Dose: 650 mg Alprazolam (Xanax -) 0.5 mg PO Q8H PRN PRN Reason: ANXIETY Last Admin: 01/26/19 21:54 Dose: 0.5 mg Enoxaparin Sodium (Lovenox -) 40 mg SQ DAILY NAVEED Sodium Chloride (Normal Saline -) 1,000 mls @ 75 mls/hr IV ASDIR NAVEED Last Admin: 01/26/19 18:25 Dose: 75 mls/hr Vancomycin HCl 1,500 mg/ (Dextrose) 250 mls @ 125 mls/hr IVPB Q12H NAVEED; Protocol Methadone HCl 120 mg/ (Methadone HCl 30 mg) 150 mg PO DAILY@0700 NAVEED Last Admin: 01/27/19 07:47 Dose: 150 mg - Objective Vital Signs: Vital Signs Temperature 98.3 F 01/27/19 09:22 Pulse Rate 74 01/27/19 09:22 Respiratory Rate 18 01/27/19 09:22 Blood Pressure 127/78 01/27/19 09:22 O2 Sat by Pulse Oximetry (%) 97 01/27/19 09:00 Labs: CBC, BMP 01/27/19 05:20 01/27/19 05:20 Assessment/Plan 48-year-old man with past medical history of hypogonadism being on testosterone supplementation for the past month, obesity, polysubstance abuse including frequent cocaine use and past daily IV heroin use currently IV heroin use once a month recent ER visit at [facility] for chest pain here for cardiac evaluation of chest pain. He last used cocaine 3 days ago, came to the ER with a right lower leg abcess which was lanced, and fever, chills, diarrhea. He also has been having chest pain for two days, episodic, nonexertional without associated symptoms. No ECG changes. Troponin is elevated. Echo 10/15/18: nlef Treadmill ECG Stress Test 10/15/18: 10 minutes Davin 100% MPHR No ECG changes. No ischemia. Chest pain -elevated troponin may represent demand from infection, cocaine induced RI. -Echo is unchanged -defer AC for now. -He is not a stress testing or cath candidate due to recent cocaine and heroin use. -Can use labetalol or coreg if needed, or preferably diltiazem. -ASA -Bcx -Abx per medicine. -will follow as outpatient with Dr Glasgow.
--- NOTE | 2019-01-27 11:18 | PN ---
Progress Note (short form) - Note Progress Note: ID CONSULT DICTATED S/P I&D R LE SOFT TISSUE ABSCESS CELLULITIS/ ? EARLY ST ABSCESS R 1ST MCP +BC R/O STAPH BACTEREMIA SECONDARY TO SKIN SOURCE POLYSUBSTANCE ABUSE CHEST PAIN SYNDROME HX IDU ? AMOXICILIN ALLERGY AWAIT C/S EMPIRIC VANCOMYCIN HIV TEST (PT CONSENTS)
--- NOTE | 2019-01-27 12:08 | CONS ---
DATE OF CONSULTATION: DATE OF DICTATION: 01/27/2019 HISTORY OF PRESENT ILLNESS: The patient is a 48-year-old male with a long history of polysubstance abuse, as well as injection drug use in the past who was evaluated for soft tissue abscess and positive blood cultures. Patient gives an unreliable history. He was admitted to the hospital on January 26, 2019. The patient reports that he was partying on the night of Wednesday, January 23, 2019. He reports taking multiple drugs, but was unable to specifically name anything that he took. He had no recall for any events that transpired. The patient apparently had lost consciousness. He developed chest pain on Friday, January 25, 2019. He presented to the emergency room where he was noted to have a soft tissue abscess of the right pretibial area, as well as the left first MCP joint. Incision and drainage was performed of the right lower extremity wound. No culture is available. Blood cultures, however, were obtained and are now positive for gram-positive cocci in clusters in one bottle. Patient has no recall for how the wounds occurred. He reports a prior history of injection drug use, but denies recent activity. He has a history of polysubstance abuse and is on methadone maintenance. He states he tested HIV negative in the past. He was seen in consultation for his chest pain and was felt to have chest pain secondary to demand ischemia from his infection. At the present time he reports feeling much better. He received vancomycin, as well as Bactrim and Keflex. He has no complaints of pain at the present time. He denies any fever or chills. Patient has had hospital admissions in the past for soft tissue abscesses secondary to injection drug use requiring incision and drainage. Previous cultures have grown viridans strep. There was no documented history of MRS; however, he does report a prior history of MRSA. In addition, there was a DOCUMENTED AMOXICILLIN ALLERGY; however, patient does not remember having an allergic reaction to amoxicillin. He reports that in the past he has developed skin and soft tissue infections for which his primary care doctor prescribed clindamycin. PAST MEDICAL HISTORY: Positive for polysubstance abuse, including heroin and cocaine, history of injection drug use. PAST SURGICAL HISTORY: Prior histories of incision and drainages. ALLERGIES: AMOXICILLIN. MEDICATIONS: Include methadone, Prilosec, Xanax, Ambien. SOCIAL HISTORY: Lives in the community. 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 He is a former smoker. Reports testing HIV negative in the past. SYSTEMS REVIEW: Neurologic: Positive for apparent syncopal episode. No seizure activity or focal weakness. Cardiac: Positive for chest pain syndrome. Respiratory: Negative cough, or sputum production. Gastrointestinal: Negative vomiting, or diarrhea. Genitourinary: Negative for urinary tract infection. LABORATORY DATA: White count 5.3, hematocrit 34.4, platelets 197. Creatinine 1.2. Urinalysis negative. Blood cultures gram-positive cocci in clusters in 1 aerobic bottle. Chest x-ray negative for acute infiltrate. PHYSICAL EXAMINATION: General: On physical examination he is awake and alert. He is not acutely toxic-appearing. Vitals: Temperature 98.3, blood pressure 135/85, pulse 76 regular, respirations 18 per minute. HEENT: Sclera anicteric. Heart: Sounds S1, S2, no murmur. Lungs: Clear. Abdomen: Obese, soft, nontender. Extremities: There is erythema and swelling over the left first MCP joint. It is tender, but no fluctuance that is well demarcated, no expressible drainage. There was diffuse swelling of the dorsum of the hand, no lymphangitic streaking. Right lower extremity, there is an incisional wound present on the right pretibial area, which is packed. There is no surrounding erythema or drainage noted. IMPRESSION: 1. Status post incision and drainage soft tissue abscess right lower extremity. 2. Cellulitis, possible early abscess of the left first metacarpophalangeal joint. 3. Positive blood culture Staphylococcus species, rule out bacteremia secondary to skin source. 4. Chest pain syndrome. 5. Polysubstance abuse with a history of injection drug use. 6. Questionable AMOXICILLIN ALLERGY. RECOMMENDATIONS: 1. Await culture results. 2. Continue vancomycin. 3. Obtain wound culture. 4. HIV testing, patient gives consent. 5. Detox/rehabilitation referral. 6. Contact precautions for a history of MRSA. The case was discussed with the patient's mother who was present at the time of the examination. Thank you for the kind referral. DANITZA BAKER M.D. DARRYN/[id number]
[2019-01-27] MEDS ORDERED: PT OWN MED DRAWER 7, Y5N ONE ×2 (12:40→21:24)
[2019-01-27] MEDS: VANCOMYCIN HCL 1,500 MG in DEXTROSE 5%-WATER - 500 ML IVPB SCH (12:44)
[2019-01-27] MEDS: ALPRAZolam 0.25 MG TABLET PO PRN (17:39)
[2019-01-27] MEDS: ACETAMINOPHEN 325 MG TABLET (FP) PO PRN (17:40)
[2019-01-27] MEDS: SODIUM CHLORIDE 1,000 ML IV SCH (17:54)
[2019-01-27] MEDS ORDERED: MAG HYDROX/AL HYDROX/SIMETH -MYLANTA- ORAL SUSPENSION PO ONE (21:15)
[2019-01-27] MEDS ORDERED: LACTULOSE 20 GM/30 ML UDC (FOR ORAL USE ONLY) PO ONE (21:16)
[2019-01-28] MEDS ORDERED: PT OWN MED DRAWER 7, Y5N ONE ×3 (00:31→23:08)
[2019-01-28] MEDS: VANCOMYCIN HCL 1,500 MG in DEXTROSE 5%-WATER - 500 ML IVPB SCH ×3 (00:34→23:16)
[2019-01-28] MEDS ORDERED: METHADONE HCL 10 MG TABLET ONE (05:57)
[2019-01-28] MEDS ORDERED: METHADONE HCL 40 MG DISPERSABLE TABLET ONE (05:57)
[2019-01-28] MEDS: METHADONE 120 MG, METHADONE 30 MG PO SCH (06:39)
[2019-01-28] MEDS: ENOXAPARIN NA (PORCINE) 40 MG/0.4 ML DISP.SYRIN SQ SCH (10:10)
[2019-01-28] MEDS: ACETAMINOPHEN 325 MG TABLET (FP) PO PRN (10:10)
[2019-01-28] MEDS: POLYETHYLENE GLYCOL 3350 119 GM BTL PO SCH (10:17)
--- NOTE | 2019-01-28 12:12 | PN ---
Progress Note (short form) - Note Progress Note: Microbiology 01/26/19 12:07 Blood - Peripheral Venous Blood Culture - Preliminary Staphylococcus Coagulase Neg 01/27/19 11:00 Wound Gram Stain - Final 01/26/19 12:23 Blood - Peripheral Venous Blood Culture - Preliminary NO GROWTH OBTAINED AFTER 24 HOURS, INCUBATION TO CONTINUE FOR 4 DAYS. 01/26/19 12:16 Blood - Peripheral Venous Blood Culture - Preliminary NO GROWTH OBTAINED AFTER 24 HOURS, INCUBATION TO CONTINUE FOR 4 DAYS. Vital Signs Period Temp Pulse Resp BP Sys/Avendaño Pulse Ox Last 24 Hr 97.5 F-97.9 F 54-66 18-18 115-128/73-88 96-96 S1s2 RRR Lungs cta abd soft left thumb MCP joint swelling tenderness, confluent swelling right nails abscess with iodoform packing, minimal erythema less induration and less tenderness present pos.pulses, no edema aaox3 nonfocal Cocaine induced cardiac ischemia, resolved clinically +blood culture f/up final results cont iv vanco for now consults appreciated hand surgical evaluation for I+D cont isolation cont methadone-150 mg confirmed with clinic Problem List - Problems (1) Abscess Code(s): L02.91 - CUTANEOUS ABSCESS, UNSPECIFIED (2) Elevated troponin Code(s): R74.8 - ABNORMAL LEVELS OF OTHER SERUM ENZYMES (3) Substance abuse Code(s): F19.10 - OTHER PSYCHOACTIVE SUBSTANCE ABUSE, UNCOMPLICATED (4) Methadone dependence Code(s): F11.20 - OPIOID DEPENDENCE, UNCOMPLICATED (5) Cocaine abuse with cocaine-induced disorder Code(s): F14.19 - COCAINE ABUSE WITH UNSPECIFIED COCAINE-INDUCED DISORDER
--- NOTE | 2019-01-28 13:23 | CONSULT ---
Consult Consult Specialty:: Hand and Microsurgery Reason for Consultation:: digit abscess - History of Present Illness Chief Complaint: Thumb abscess History of Present Illness: 48yo RHD male PMH polysubstance abuse with long history of drug use-currently on Methadone 150 mag as per patient-daily through methadone clinic. went to [place] on [id number] and used drugs, but blacked out afterwards, so he is unsure what he took. since then has not been able to/did not have the energy to go to his methadone clinic for methadone. today he came in c/o leg swelling/abscess and left hand hand pain, also describes chest discomfort/ pressure, which subsided since he has been in the ED. We were called to assess. - History Source History Provided By: Patient, Medical Record Limitations to Obtaining History: No Limitations - Past Medical History Psych: Yes: Addictions (on methadone maintenance), Anxiety, Bipolar (?) - Alcohol/Substance Use Hx Alcohol Use: Yes History of Substance Use: reports: Cocaine, Heroin - Smoking History Smoking history: Never smoked Have you smoked in the past 12 months: Yes Aproximately how many cigarettes per day: 5 - Social History ADL: Independent History of Recent Travel: No Home Medications - Allergies Allergies/Adverse Reactions: Allergies Allergy/AdvReac Type Severity Reaction Status Date / Time amoxicillin Allergy Nausea Verified 01/26/19 07:43 - Home Medications Home Medications: Ambulatory Orders Methadone [Dolophine -] 150 mg PO DAILY@0600 tablet 02/10/15 Sertraline HCl [Zoloft] 100 mg PO DAILY 03/01/15 Zolpidem Tartrate [Ambien] 10 mg PO HS 03/01/15 Omeprazole 20 mg PO DAILY 06/22/15 Alprazolam [Xanax] 0.5 mg PO Q8H PRN #0 tablet 06/27/15 Bacitracin/Polymyxin Ointment [Polysporin Ointment -] 1 applic TP BID #30 grams 06/27/15 Ibuprofen [Motrin -] 600 mg PO Q6H PRN #0 tablet 06/27/15 Sulfamethoxazole/Trimethoprim [Bactrim DS -] 1 each PO BID #20 tablet 06/27/15 Clindamycin [Cleocin -] 300 mg PO QID #28 capsule 05/04/17 Ibuprofen [Motrin -] 600 mg PO QID #28 tablet 05/04/17 Physical Exam Vital Signs: Vital Signs Temperature 97.5 F L 01/28/19 02:00 Pulse Rate 60 01/28/19 08:24 Respiratory Rate 18 01/28/19 08:29 Blood Pressure 124/73 01/28/19 08:24 O2 Sat by Pulse Oximetry (%) 96 01/28/19 08:29 Constitutional: Yes: Well Nourished, No Distress, Calm Eyes: Yes: Conjunctiva Clear, EOM Intact HENT: Yes: Atraumatic, Normocephalic Neck: Yes: Supple, Trachea Midline Cardiovascular: Yes: Regular Rate and Rhythm, S1, S2 Respiratory: Yes: Regular, CTA Bilaterally Gastrointestinal: Yes: Normal Bowel Sounds, Soft. No: Tenderness ...Rectal Exam: Yes: Deferred Renal/: No: CVA Tenderness - Left, CVA Tenderness - Right Breast(s): No: Mass, Skin Changes Musculoskeletal: No: Muscle Pain, Muscle Weakness Extremities: Yes: Erythema ([id number] doral swelling over left thumb Zone3 extensor MCP, +fluctuance). No: Cool, Cyanosis Edema: Yes Edema: LUE: 2+, RLE: 2+ Peripheral Pulses WNL: Yes Wound/Incision: Yes: Clean/Dry, Draining, Reddened, Unapproximated Neurological: Yes: Alert, Oriented Psychiatric: Yes: Alert, Oriented Labs: CBC, BMP 01/27/19 05:20 01/27/19 05:20 Imaging - Results X-ray: Report Reviewed, Image Reviewed Problem List - Problems (1) Abscess of left thumb Assessment/Plan: 48yo RHD male with left thumb abscess 2nd to IVDA Management per primary team Bedside I&D of left thumb abscess IV antibiotics per ID local wound care f/u culture will follow peripherally Code(s): L02.512 - CUTANEOUS ABSCESS OF LEFT HAND (2) Cocaine abuse with cocaine-induced disorder Code(s): F14.19 - COCAINE ABUSE WITH UNSPECIFIED COCAINE-INDUCED DISORDER (3) Substance abuse Code(s): F19.10 - OTHER PSYCHOACTIVE SUBSTANCE ABUSE, UNCOMPLICATED (4) Constipation Code(s): K59.00 - CONSTIPATION, UNSPECIFIED (5) History of heroin abuse Code(s): Z87.898 - PERSONAL HISTORY OF OTHER SPECIFIED CONDITIONS (6) Insomnia Code(s): G47.00 - INSOMNIA, UNSPECIFIED Qualifiers: Insomnia type: primary Qualified Code(s): F51.01 - Primary insomnia (7) Methadone dependence Code(s): F11.20 - OPIOID DEPENDENCE, UNCOMPLICATED
[2019-01-28] MEDS ORDERED: LIDOCAINE HCL 1%, 10 MG/ML (50 mL VIAL) SQ ONE (14:00)
[2019-01-28] MEDS: ALPRAZolam 0.25 MG TABLET PO PRN (14:57)
[2019-01-28] MEDS: IBUPROFEN 200 MG TABLET PO PRN (23:17)
[2019-01-29] MEDS ORDERED: METHADONE HCL 40 MG DISPERSABLE TABLET ONE (06:56)
[2019-01-29] MEDS ORDERED: METHADONE HCL 10 MG TABLET ONE (06:56)
[2019-01-29] MEDS: METHADONE 120 MG, METHADONE 30 MG PO SCH (07:05)
--- NOTE | 2019-01-29 08:42 | PN ---
Progress Note (short form) - Note Progress Note: Microbiology 01/26/19 12:23 Blood Culture - Preliminary Blood - Peripheral Venous NO GROWTH OBTAINED AFTER 48 HOURS, INCUBATION TO CONTINUE FOR 3 DAYS. 01/26/19 12:16 Blood Culture - Preliminary Blood - Peripheral Venous NO GROWTH OBTAINED AFTER 48 HOURS, INCUBATION TO CONTINUE FOR 3 DAYS. 01/27/19 11:00 Gram Stain - Final Wound Wound Culture - Preliminary NO GROWTH OBTAINED AFTER 24 HOURS INCUBATION, REINCUBATED. 01/26/19 12:07 Blood Culture - Preliminary Blood - Peripheral Venous Staphylococcus Coagulase Neg Vital Signs Period Temp Pulse Resp BP Sys/Avendaño Pulse Ox Last 24 Hr 97.5 F-97.6 F 51-66 18-19 109-141/75-95 96-98 S1s2 RRR Lungs cta abd soft left thumb MCP joint swelling tenderness, confluent swelling right nails abscess scant serous discharge, minimal erythema less induration pos.pulses, no edema aaox3 nonfocal Cocaine induced cardiac ischemia, resolved clinically Staph coag neg bacteremia f/up final results nails and left hand abscess cont iv vanco for now consults appreciated i+d today left hand abx as per id, will discuss once culture finalized Problem List - Problems (1) Abscess Code(s): L02.91 - CUTANEOUS ABSCESS, UNSPECIFIED (2) Elevated troponin Code(s): R74.8 - ABNORMAL LEVELS OF OTHER SERUM ENZYMES (3) Substance abuse Code(s): F19.10 - OTHER PSYCHOACTIVE SUBSTANCE ABUSE, UNCOMPLICATED (4) Methadone dependence Code(s): F11.20 - OPIOID DEPENDENCE, UNCOMPLICATED (5) Cocaine abuse with cocaine-induced disorder Code(s): F14.19 - COCAINE ABUSE WITH UNSPECIFIED COCAINE-INDUCED DISORDER
--- NOTE | 2019-01-29 09:09 | PROC ---
Incision and Drainage Indication/Location: left thumb dorsal MCP abscess Risks and Benefits Explained: Yes Consent on Chart: Yes Betadine cleansed: Yes Anesthesia: 1% Lidocaine Blade Size: 15 Irrigated with Normal Saline: Yes Plain packing: No Sterile Dressing Applied: Yes - Remarks Remarks: formal time out sterile prep and drape incision over maximum fluctuance wound culture taken irrigation of the site sterile dressing placed
[2019-01-29] MEDS ORDERED: ACETAMINOPHEN 1000 MG/100 ML VIAL (NON FORMULARY) IVPB ONE (09:21)
[2019-01-29] MEDS: ENOXAPARIN NA (PORCINE) 40 MG/0.4 ML DISP.SYRIN SQ SCH (10:00)
[2019-01-29] MEDS: POLYETHYLENE GLYCOL 3350 119 GM BTL PO SCH (10:03)
[2019-01-29] MEDS: VANCOMYCIN HCL 1,500 MG in DEXTROSE 5%-WATER - 500 ML IVPB SCH ×2 (11:00→23:30)
[2019-01-29] MEDS ORDERED: PT OWN MED DRAWER 7, Y5N ONE (23:06)
[2019-01-30] MEDS ORDERED: METHADONE HCL 40 MG DISPERSABLE TABLET ONE (06:09)
[2019-01-30] MEDS ORDERED: METHADONE HCL 10 MG TABLET ONE (06:10)
[2019-01-30] MEDS: METHADONE 120 MG, METHADONE 30 MG PO SCH (06:45)
[2019-01-30 08:18] LABS: BASO % 0.7 % (0-2.0); EOS % 4.4 % (0-4.5); HEMATOCRIT 33.2 % (35.4-49); HEMOGLOBIN 11.5 GM/dL (11.7-16.9); LYMPH % 39.8 % (8-40); MCHC 34.5 g/dl (32.0-35.9); MEAN CELL VOLUME 80.9 fl (80-96); MEAN PLT VOLUME 7.1 fl (7.5-11.1); MONO % 8.5 % (3.8-10.2); NEUT % 46.6 % (42.8-82.8); PLATELET COUNT 283 K/MM3 (134-434); RDW 14.1 % (11.9-15.9); WHITE BLOOD COUNT 4.8 K/mm3 (4.0-10.0)
[2019-01-30 08:25] LABS: INR 1.01 (0.83-1.09); PROTHROMBIN TIME (PATIENT) 11.9 SEC (9.7-13.0)
[2019-01-30 08:26] LABS: ALBUMIN 3.1 g/dl (3.4-5.0); BILIRUBIN,TOTAL 0.7 mg/dL (0.2-1); BLOOD UREA NITROGEN 9.3 mg/dL (7-18); CALCIUM 8.5 mg/dL (8.5-10.1); CREATININE 1.1 mg/dL (0.55-1.3); POTASSIUM 3.9 mmol/L (3.5-5.1); TOT PROT 6.6 g/dl (6.4-8.2)
[2019-01-30] MEDS: IBUPROFEN 200 MG TABLET PO PRN (09:51)
[2019-01-30] MEDS: POLYETHYLENE GLYCOL 3350 119 GM BTL PO SCH (09:53)
[2019-01-30] MEDS: ENOXAPARIN NA (PORCINE) 40 MG/0.4 ML DISP.SYRIN SQ SCH (09:53)
[2019-01-30] MEDS: VANCOMYCIN HCL 1,500 MG in DEXTROSE 5%-WATER - 500 ML IVPB SCH (12:48)
--- NOTE | 2019-01-30 13:32 | PN ---
Progress Note, Physician History of Present Illness: NO C/O HAND PAIN AFEBRILE WBC WNL BC CONTAMINANT WOUND C/S LF - Current Medication List Current Medications: Active Medications Alprazolam (Xanax -) 0.5 mg PO Q8H PRN PRN Reason: ANXIETY Last Admin: 01/28/19 14:57 Dose: 0.5 mg Enoxaparin Sodium (Lovenox -) 40 mg SQ DAILY [facility] Last Admin: 01/30/19 09:53 Dose: 40 mg Vancomycin HCl 1,500 mg/ (Dextrose) 500 mls @ 125 mls/hr IVPB Q12H NAVEED; Protocol Last Admin: 01/30/19 12:48 Dose: 125 mls/hr Ibuprofen (Advil -) 200 mg PO Q6H PRN PRN Reason: PAIN LEVEL 1-5 Last Admin: 01/30/19 09:51 Dose: 200 mg Methadone HCl 120 mg/ (Methadone HCl 30 mg) 150 mg PO DAILY@0700 [facility] Last Admin: 01/30/19 06:45 Dose: 150 mg Polyethylene Glycol (Miralax (For Daily Use) -) 17 gm PO DAILY [facility] Last Admin: 01/30/19 09:53 Dose: 17 grams - Objective Vital Signs: Vital Signs Temperature 97.4 F L 01/30/19 06:00 Pulse Rate 60 01/30/19 06:00 Respiratory Rate 18 01/30/19 06:00 Blood Pressure 133/83 01/30/19 06:00 O2 Sat by Pulse Oximetry (%) 98 01/29/19 21:00 Constitutional: Yes: No Distress Eyes: Yes: Conjunctiva Clear Cardiovascular: Yes: Regular Rate and Rhythm, S1, S2 Respiratory: Yes: CTA Bilaterally Extremities: Yes: Other (INCISIONAL WOUND OVER 1ST MCP JOINT NO DRAINAGE. LEG ABSCESS HEALING) Labs: CBC, BMP 01/30/19 05:30 01/30/19 05:30 INR, PTT INR 1.01 (0.83-1.09) 01/30/19 05:30 Assessment/Plan S/P I&D HAND AND LEG ABSCESSES HX IDU +BC = CONTAMINANT SUBSTITUTE PO BACTRIM DS BID X 7D
[2019-01-30] MEDS ORDERED: SULFAMETHOXAZOLE/TRIMETHOPRIM 800MG/160MG D.S. TABLET PO SCH (13:45)
--- NOTE | 2019-01-30 16:29 | DS ---
Physical Examination Vital Signs: Vital Signs Temperature 98.2 F 01/30/19 10:00 Pulse Rate 68 01/30/19 10:00 Respiratory Rate 18 01/30/19 10:00 Blood Pressure 135/94 01/30/19 10:00 O2 Sat by Pulse Oximetry (%) 98 01/29/19 21:00 Findings/Remarks: denies pain Constitutional: Yes: Well Nourished, Calm Eyes: Yes: Conjunctiva Clear HENT: Yes: Normocephalic Neck: Yes: Trachea Midline Cardiovascular: Yes: Regular Rate and Rhythm Respiratory: Yes: CTA Bilaterally Gastrointestinal: Yes: Normal Bowel Sounds, Soft Edema: No Peripheral Pulses WNL: Yes Wound/Incision: Yes: Other (right shinincision healing well, dry, no discharge left thumb wound over MCP, swollen, but not tender, no discharge, no warmth) Neurological: Yes: WNL Labs: CBC, BMP 01/30/19 05:30 01/30/19 05:30 Discharge Summary Reason For Visit: ABSCESS ELEVATED TROPININ LEVEL CHEST PAIN Current Active Problems Abscess (Acute) Abscess of left thumb (Acute) Cocaine abuse with cocaine-induced disorder (Acute) Elevated troponin (Acute) Substance abuse (Acute) Hospital Course: Came to er c/o right nails abscess and left hand infection, noted to have cocaine induced cardiac ischemia, resolved clinically. urine toxicology positive for methadone, cocaine, opiates and benzodiazepines. nails abscess was i+d in er. left thumb MCP abscess was i+d by surgery at bedside. initiall did have positive blood culture Staph coag neg, eventually deemed contaminant. clinically well, stable to go home and follow up as oupt on saturday. finish bactrim ds po bid for 7 more days. Condition: Fair - Instructions Diet, Activity, Other Instructions: keep hand clean, cover with sterile dry dressing daily follow up with on Saturday Disposition: HOME - Home Medications Comprehensive Discharge Medication List: Ambulatory Orders Methadone [Dolophine -] 150 mg PO DAILY@0600 tablet 02/10/15 Sertraline HCl [Zoloft] 100 mg PO DAILY 03/01/15 Zolpidem Tartrate [Ambien] 10 mg PO HS 03/01/15 Omeprazole 20 mg PO DAILY 06/22/15 Alprazolam [Xanax] 0.5 mg PO Q8H PRN #0 tablet 06/27/15 Ibuprofen [Motrin -] 600 mg PO QID #28 tablet 05/04/17 Sulfamethoxazole/Trimethoprim [Bactrim DS -] 1 each PO BID #14 tablet 01/30/19
[2019-01-30 17:12] VITALS: BP 141/92; PULSE 62; TEMP 97.9
== END 2019-01-30 18:12 | disposition home or self-care (01) | DRG 816 ==
LOC: JER 07:35 → JERBED 11:54 → J4W 20:15
PROVIDERS: ADMIT Internal Medicine; ATTEND Internal Medicine
PROC: 0H9KXZX Drainage of Right Lower Leg Skin, External Approach, Diagnostic (ICD-10-PCS; principal; 2019-01-26)
PROC: 0H9GXZX Drainage of Left Hand Skin, External Approach, Diagnostic (ICD-10-PCS; 2019-01-29)
DX: T40.5X1A Poisoning by cocaine, accidental (unintentional), initial encounter (principal); R78.81 Bacteremia; I24.9 Acute ischemic heart disease, unspecified; L02.415 Cutaneous abscess of right lower limb; F11.20 Opioid dependence, uncomplicated; F14.19 Cocaine abuse with unspecified cocaine-induced disorder; L03.011 Cellulitis of right finger; L02.512 Cutaneous abscess of left hand; B95.8 Unspecified staphylococcus as the cause of diseases classified elsewhere; I10 Essential (primary) hypertension; F32.9 Major depressive disorder, single episode, unspecified; Z87.891 Personal history of nicotine dependence; E29.1 Testicular hypofunction; E66.9 Obesity, unspecified; Z68.32 Body mass index [BMI] 32.0-32.9, adult; K59.00 Constipation, unspecified; G47.00 Insomnia, unspecified; F13.10 Sedative, hypnotic or anxiolytic abuse, uncomplicated
CPT/HCPCS: 36415; 71046-TC-FY; 73130-TC-LT-FY; 80053; 80307; 81003; 82550; 82553; 84484; 85025; 85610; 87040; 87070; 87186; 87205; 87389; 90732; 93005; 93010; 93306-TC; 99283-25; G0009; G0480; J0131; J7030

== ENCOUNTER 2019-02-17 10:03 | Emergency (ER) | payer OTHER ==
[2019-02-17 10:15] VITALS: BMI 33.5
--- NOTE | 2019-02-17 11:13 | PDOC ---
History of Present Illness - General Chief Complaint: Chest Pain Stated Complaint: CHEST PAIN Time Seen by Provider: 02/17/19 10:52 History Source: Patient Exam Limitations: No Limitations - History of Present Illness Initial Comments: 02/17/19 11:08 48 yo M PMH HTN, cocaine use, nicotine use, methadone use, presenting with chest pain States that he began to have sternal chest pain, sharp, lasting minutes at a time, around 1500 yesterday. Has been having the pain on and off since then. Reports that he has been very gassy lately and is unsure whether this is just gas. Also reports that he bend down yesterday and felt L neck pain "like a bubble", which resolved within seconds. Not currently feeling this neck pain. States that his last cocaine use was January 26, however, he has been vaping a lot recently. Denies SOB, abdominal pain, fevers/chills, constipation/diarrhea, DUMONT, N/V, diaphoresis. Endorses "feeling weak" and tired since yesterday, when sternal pain began. Past History - Past Medical History Allergies/Adverse Reactions: Allergies Allergy/AdvReac Type Severity Reaction Status Date / Time amoxicillin Allergy Nausea Verified 02/17/19 10:15 Home Medications: Ambulatory Orders Methadone [Dolophine -] 150 mg PO DAILY@0600 tablet 02/10/15 Sertraline HCl [Zoloft] 100 mg PO DAILY 03/01/15 Zolpidem Tartrate [Ambien] 10 mg PO HS 03/01/15 Omeprazole 20 mg PO DAILY 06/22/15 Alprazolam [Xanax] 0.5 mg PO Q8H PRN #0 tablet 06/27/15 Ibuprofen [Motrin -] 600 mg PO Q6H PRN #0 tablet 06/27/15 Ibuprofen [Motrin -] 600 mg PO QID #28 tablet 05/04/17 Sulfamethoxazole/Trimethoprim [Bactrim DS -] 1 each PO BID #14 tablet 01/30/19 Anemia: No Asthma: No Cancer: No Cardiac Disorders: No CVA: No COPD: No CHF: No Dementia: No Diabetes: No GI Disorders: No Disorders: No HTN: No Hypercholesterolemia: No Kidney Stones: No Liver Disease: No Psychiatric Problems: Yes (depression) Seizures: No Thyroid Disease: No Other medical history: DENIES - Surgical History Abdominal Surgery: No Appendectomy: No Cardiac Surgery: No Cholecystectomy: No Lung Surgery: No Neurologic Surgery: No Orthopedic Surgery: Yes (Left eye socket metal plate) - Reproductive History Testicular Surgery: No - Immunization History Immunization Up to Date: Yes - Psycho Social/Smoking Cessation Hx Smoking History: Current every day smoker Have you smoked in the past 12 months: Yes Number of Cigarettes Smoked Daily: 5 Information on smoking cessation initiated: Yes 'Breaking Loose' booklet given: 01/27/19 Hx Alcohol Use: No Drug/Substance Use Hx: No Substance Use Type: Cocaine, Heroin, Opiates Hx Substance Use Treatment: No Review of Systems - Review of Systems Constitutional: Yes: Weakness (fatigue). No: Chills, Diaphoresis, Fever HEENTM: No: Eye Pain, Double Vision, Hearing Loss, Difficulty Swallowing Respiratory: No: Cough, Orthopnea, Shortness of Breath Cardiac (ROS): Yes: Chest Pain. No: Edema, Irregular Heart Rate, Lightheadedness, Palpitations, Syncope (sternal, sharp, intermittent) ABD/GI: No: Constipated, Diarrhea, Nausea, Vomiting : No: Burning, Dysuria, Discharge, Frequency, Flank Pain, Hematuria Musculoskeletal: No: Back Pain, Muscle Pain Psychiatric: Yes: Anxiety *Physical Exam - Vital Signs Last Vital Signs Temp Pulse Resp BP Pulse Ox 98.2 F 74 18 113/75 96 02/17/19 10:13 02/17/19 10:13 02/17/19 10:13 02/17/19 10:13 02/17/19 10:13 - Physical Exam Comments: 02/17/19 11:13 Gen: well-developed, well-nourished, NAD HEENT: atraumatic, normocephalic Neck: trachea midline, supple, no TTP CV: regular rate, regular rhythm Pulm: CTA b/l, no wheezing Abd: soft, non-distended, non-tender Skin: ulceration on L hand, R leg, healing well MSK: full ROM, 2+ pulses Extr: no edema, no deformities Neuro: AAOX4, CN II-XII intact, FTN intact ED Treatment Course - LABORATORY CBC & Chemistry Diagram: 02/17/19 11:25 02/17/19 11:25 - RADIOLOGY Radiology Studies Ordered: Category Date Time Status CHEST PA & LAT [RAD] Stat Radiology 02/17/19 11:00 Ordered Medical Decision Making - Medical Decision Making 02/17/19 11:15 48 yo M PMH substance abuse, presenting with chest pain. - EKG sinus, regular rate - CBC, CMP, coags - CXR PA + L - ctm 02/17/19 12:39 Patient reassessed, states that he is still feeling sternal discomfort. Will give GI cocktail, look for symptomatic relief. 02/17/19 13:42 Patient feeling the same. Will give Tylenol and simethicone, get second trop. Will likely dc home pending trop. 02/17/19 14:00 Patient reassessed, symptoms have completely resolved. Will get repeat trop, likely dc home. 02/17/19 15:15 2nd trop negative, will dc home. Discharge - Discharge Information Problems reviewed: Yes Clinical Impression/Diagnosis: Chest pain Condition: Improved Disposition: HOME - Admission No - Follow up/Referral Referrals: Krish Kitchen MD [Primary Care Provider] - - Patient Discharge Instructions Patient Printed Discharge Instructions: DI for Atypical Chest Pain Additional Instructions: You were seen with chest pain. Your labs were unremarkable, as were your EKG and chest X ray. Your symptoms improved with treatments for GERD and for gas. Please take these [id number] medications as needed for your symptoms. Follow up with your primary care doctor. Return to the ED if you develop worsening chest pain or shortness of breath. - Post Discharge Activity
[2019-02-17] MEDS ORDERED: MAG HYDROX/AL HYDROX/SIMETH -MYLANTA- ORAL SUSPENSION PO ONE (11:17)
[2019-02-17] MEDS ORDERED: FAMOTIDINE 20 MG/50 ML IVPB 20 MG in PREMIX 50 IVPB ONE (11:17)
--- NOTE | 2019-02-17 11:17 | PDOC ---
Attending Attestation - Resident Resident Name: Terri Burroughs - ED Attending Attestation I have performed the following: I have examined & evaluated the patient, The case was reviewed & discussed with the resident, I agree w/resident's findings & plan, Exceptions are as noted - HPI HPI: 02/17/19 11:18 48y M hx of htn, cocaine use, nicotine use, methadone use, presents with complaint of chest pain. Pt endorses intermittent substernal chest pain, that is sharp, lasting ~10-15 min at a time since yesterday afternoon. Pt notes the pain seems to improve if he lies on his belly and with movement. denies any worsening with exertion/ Pt denies any sob, palpitations, n/v, diaphoresis, back pain, numbness/tingling/weakness, fever/chills. Pt endorses that pain feels kind of like gas. pt had recent admission for abcess/cocaine induced cp with elev trop. pt currently pain free. last pain prior to arrival. +former smoker, current vapes last cocaine use prior to previous admission - Physicial Exam PE: 02/17/19 11:25 GENERAL: The patient is awake, alert, and fully oriented, Nontoxic - in no acute distress. HEAD: Normocephalic, atraumatic. EYES: extraocular movements intact, sclera anicteric, conjunctiva clear. ENT: Normal voice, Moist mucous membranes. NECK: Normal range of motion, supple LUNGS: Breath sounds equal, clear to auscultation bilaterally. No wheezes, no rhonchi, no rales. HEART: Regular rate and rhythm, normal S1 and S2 without murmur, rub or gallop. ABDOMEN: Soft, nontender, No guarding, no rebound. No CVA tenderness EXTREMITIES: Normal range of motion, no edema. NEUROLOGICAL: No facial assymetry, Normal speech, PSYCH: Normal mood, normal affect. SKIN: Warm, Dry, normal turgor, - Medical Decision Making 02/17/19 11:28 ddx - acs, pancreatitis, gerd/reflux will obtain trops, ekg, lipase, labs pepcid/maalox will reassess 02/17/19 13:01 labs reviewed will obtain 2nd trop 02/17/19 15:15 pt feeling improved trop neg x 2 will dc with pmd fu return precautions were discussed Heart Score/ECG Review - ECG Impressions Comment:: 02/17/19 11:27 Twelve-lead EKG was performed and reviewed by me. There is normal sinus rhythm with a normal rate. rate of 71 The axis is normal. The intervals are normal. There is normal R wave progression There are no ST or T wave abnormalities. Impression: Normal twelve-lead EKG
[2019-02-17 11:45] LABS: BASO % 0.8 % (0-2.0); EOS % 2.3 % (0-4.5); HEMATOCRIT 37.2 % (35.4-49); HEMOGLOBIN 13.2 GM/dL (11.7-16.9); LYMPH % 23.1 % (8-40); MCH 28.7 pg (25.7-33.7); MCHC 35.5 g/dl (32.0-35.9); MEAN CELL VOLUME 80.7 fl (80-96); MONO % 11.2 % (3.8-10.2); NEUT % 62.6 % (42.8-82.8); RBC 4.61 M/mm3 (4.00-5.60); RDW 14.9 % (11.9-15.9); WHITE BLOOD COUNT 6.9 K/mm3 (4.0-10.0)
[2019-02-17 12:18] LABS: ALBUMIN 3.4 g/dl (3.4-5.0); ALK PHOS 75 U/L (45-117); ANION GAP 6 MMOL/L (8-16); BILIRUBIN,TOTAL 0.8 mg/dL (0.2-1); BLOOD UREA NITROGEN 9.6 mg/dL (7-18); CALCIUM 8.7 mg/dL (8.5-10.1); CHLORIDE 103 mmol/L (98-107); CO2 28 mmol/L (21-32); CREATININE 1.1 mg/dL (0.55-1.3); GLUCOSE,RANDOM 102 mg/dL (74-106); LIPASE 89 U/L (73-393); POTASSIUM 4.8 mmol/L (3.5-5.1); SGOT/AST 29 U/L (15-37); SGPT/ALT 60 U/L (13-61); SODIUM 137 mmol/L (136-145); TOT PROT 7.3 g/dl (6.4-8.2)
[2019-02-17] MEDS ORDERED: RANITIDINE HCL 150 MG TABLET (FP) PO ONE (12:44)
--- NOTE | 2019-02-17 12:45 | EKG ---
Test Reason : Blood Pressure : / mmHG Vent. Rate : 071 BPM Atrial Rate : 071 BPM P-R Int : 184 ms QRS Dur : 102 ms QT Int : 424 ms P-R-T Axes : 032 021 029 degrees QTc Int : 460 ms NORMAL SINUS RHYTHM NORMAL ECG WHEN COMPARED WITH ECG OF 26-JAN-2019 08:52, NO SIGNIFICANT CHANGE WAS FOUND Confirmed by MD NICOLASA, CLEMENTE ([id number]) on 02/17/2019 12:45:28 PM Referred By: Confirmed By:CLEMENTE BALDWIN MD
[2019-02-17] MEDS ORDERED: MAG HYDROX/AL HYDROX/SIMETH 30 ML UNIT-DOSE CUP ONE (13:03)
[2019-02-17] MEDS ORDERED: FAMOTIDINE 20 MG/50 ML IVPB 20 MG/50 ML MG IVPB ONE (13:15)
[2019-02-17] MEDS ORDERED: SIMETHICONE 80 MG TAB.CHEW (FP) PO ONE (13:39)
[2019-02-17] MEDS ORDERED: ACETAMINOPHEN 500 MG TABLET (FP) PO ONE (13:41)
[2019-02-17 14:48] LABS: MEAN PLT VOLUME 7.5 fl (7.5-11.1); PLATELET COUNT 189 K/MM3 (134-434); PLATELET ESTIMATE ADEQUATE
[2019-02-17] MEDS ORDERED: ACETAMINOPHEN 325 MG TABLET (FP) ONE (15:15)
[2019-02-17 15:23] VITALS: BP 110/72; PULSE 72; TEMP 97.9
== END 2019-02-17 15:23 | disposition home or self-care (01) ==
LOC: JER 10:03
DX: R07.9 Chest pain, unspecified (principal); F11.20 Opioid dependence, uncomplicated; F32.9 Major depressive disorder, single episode, unspecified; F17.290 Nicotine dependence, other tobacco product, uncomplicated; Z88.0 Allergy status to penicillin
CPT/HCPCS: 36415; 71046-TC-FY; 80053; 83690; 84484; 85025; 93005; 93010; 99283-25

== ENCOUNTER 2019-11-29 14:32 | Emergency (ER) | payer OTHER ==
[2019-11-29 14:40] VITALS: TEMP 98; BMI 34.8
--- NOTE | 2019-11-29 14:41 | PDOC ---
Rapid Medical Evaluation Chief Complaint: Chest Pain Time Seen by Provider: 11/29/19 14:36 Medical Evaluation: Allergies Allergy/AdvReac Type Severity Reaction Status Date / Time amoxicillin Allergy Nausea Verified 02/17/19 10:15 11/29/19 14:38 I performed a brief in-person evaluation of this patient. Pt is a 49 y/o male with complaint of cp for the last 3 days which was intermittent and is now constant. He states the pain radiates to her left axilla. He denies any cardiac history but states "he almost had a heart attack a year ago". He takes methadone for opiate addiction. He denies any other meds. Pt states he feels fluttering in his chest as well. Pt does admit to using heroin the last few days to "help calm himself down" but denies using the heroin today. Pertinent physical exam findings: no reproducible cp to palpation, speaking in full sentences, no respiratory distress I have ordered the following: cardiac labs, ekg, cxr Patient to proceed to ED for further evaluation. Discharge Disposition - Diagnosis Chest pain - Referrals - Patient Instructions - Post Discharge Activity
--- NOTE | 2019-11-29 15:11 | PDOC ---
History of Present Illness - General Chief Complaint: Chest Pain Stated Complaint: CHEST PAIN Time Seen by Provider: 11/29/19 14:36 History Source: Patient - History of Present Illness Initial Comments: 11/29/19 16:11 49M w/hx opiate use disorder (in remission, on methadone - last dose today) p/w 3 days of intermittent chest pain. He reports intermittent 4/10 L upper chest wall discomfort, occasionally radiating to the chest. He denies any palpitations, weakness, confusion, sob. He reports that pain improves with activity, as well as with passing gas. He denies similar prior episodes of pain. No attempt at symptom control today. He reports GasX use yesterday with no improvement. He denies smoking or etoh use. Last methadone use today, denies withdrawal symptoms at this time. Past History - Medical History Allergies/Adverse Reactions: Allergies Allergy/AdvReac Type Severity Reaction Status Date / Time amoxicillin Allergy Nausea Verified 11/29/19 14:40 Home Medications: Ambulatory Orders Methadone [Dolophine -] 150 mg PO DAILY@0600 tablet 02/10/15 Sertraline HCl [Zoloft] 100 mg PO DAILY 03/01/15 Zolpidem Tartrate [Ambien] 10 mg PO HS 03/01/15 Omeprazole 20 mg PO DAILY 06/22/15 Alprazolam [Xanax] 0.5 mg PO Q8H PRN #0 tablet 06/27/15 Ibuprofen [Motrin -] 600 mg PO Q6H PRN #0 tablet 06/27/15 Ibuprofen [Motrin -] 600 mg PO QID #28 tablet 05/04/17 Sulfamethoxazole/Trimethoprim [Bactrim DS -] 1 each PO BID #14 tablet 01/30/19 Anemia: No Asthma: No Cancer: No Cardiac Disorders: No CVA: No COPD: No CHF: No Dementia: No Diabetes: No GI Disorders: No Disorders: No HTN: No Hypercholesterolemia: No Kidney Stones: No Liver Disease: No Psychiatric Problems: Yes (depression) Seizures: No Thyroid Disease: No Other medical history: methadone for opiate addiction - Surgical History Abdominal Surgery: No Appendectomy: No Cardiac Surgery: No Cholecystectomy: No Lung Surgery: No Neurologic Surgery: No Orthopedic Surgery: Yes (Left eye socket metal plate) - Reproductive History Testicular Surgery: No - Immunization History Immunization Up to Date: Yes - Psycho-Social/Smoking History Smoking History: Never smoked Have you smoked in the past 12 months: Yes Number of Cigarettes Smoked Daily: 5 'Breaking Loose' booklet given: 01/27/19 - Substance Abuse Hx (Audit-C & DAST Scrn) How often the patient has a drink containing alcohol: Never Score: In Men: 4 or > Positive; In Women: 3 or > Positive: 0 Screen Result (Pos requires Nsg. Audit-10AR): Negative Review of Systems - Review of Systems Able to Perform ROS?: Yes Comments:: 11/29/19 16:50 GENERAL/CONSTITUTIONAL: No fever or chills. No weakness. HEAD, EYES, EARS, NOSE AND THROAT: No change in vision. No ear pain or discharge. No sore throat. CARDIOVASCULAR: Chest pain. No shortness of breath RESPIRATORY: No cough, wheezing, or hemoptysis. GASTROINTESTINAL: No nausea, vomiting, diarrhea or constipation. GENITOURINARY: No dysuria, frequency, or change in urination. MUSCULOSKELETAL: No joint or muscle swelling or pain. No neck or back pain. SKIN: No rash NEUROLOGIC: No headache, vertigo, loss of consciousness, or change in strength/sensation. ENDOCRINE: No increased thirst. No abnormal weight change HEMATOLOGIC/LYMPHATIC: No anemia, easy bleeding, or history of blood clots. ALLERGIC/IMMUNOLOGIC: No hives or skin allergy. *Physical Exam - Vital Signs Last Vital Signs Temp Pulse Resp BP Pulse Ox 98 F 69 18 130/82 99 11/29/19 14:34 11/29/19 14:34 11/29/19 14:34 11/29/19 14:34 11/29/19 14:34 - Physical Exam 11/29/19 16:51 GENERAL: Awake, alert, and fully oriented, in no acute distress HEAD: No signs of trauma, normocephalic, atraumatic EYES: PERRLA, EOMI, sclera anicteric, conjunctiva clear ENT: Auricles normal inspection, hearing grossly normal, nares patent, oropharynx clear without exudates. Moist mucosa NECK: Normal ROM, supple, no lymphadenopathy, JVD, or masses LUNGS: No distress, speaks full sentences, clear to auscultation bilaterally HEART: Regular rate and rhythm, normal S1 and S2, no murmurs, rubs or gallops, peripheral pulses normal and equal bilaterally. ABDOMEN: Soft, nontender, normoactive bowel sounds. No guarding, no rebound. No masses EXTREMITIES : Normal inspection, Normal range of motion, no edema. No clubbing or cyanosis NEUROLOGICAL: Cranial nerves II through XII grossly intact. Normal speech, normal gait, no focal sensorimotor deficits SKIN: Warm, Dry, normal turgor, no rashes or lesions noted Heart Score/ECG Review - History History: Slightly suspicious - Electrocardiogram EKG: Normal - Age Age: 45-65 - Risk Factors Risk Factors Heart Score: Yes Hx Obesity Based on the list above the patient has:: 1-2 risk factors - Troponin Troponin: </= normal limit - Score Heart Score - Total: 2 ED Treatment Course - LABORATORY CBC & Chemistry Diagram: 11/29/19 16:06 11/29/19 16:06 Medical Decision Making - Medical Decision Making 11/29/19 16:51 49M w/hx opiate use disorder (in remission on methadone) p/w 3 days of intermittent chest pain. No pain at this time. HEART Score: 2. Plan: CBC CMP EKG CXR Cardiac profile Dispo: Discharge --- Troponin - negative CBC - wnl CMP - wnl CXR - unchanged from prior, no acute process visualized On reassessment, endorsing mild epigastric discomfort. Plan for maalox, pepcid, acetaminophen for symptom control. HEART score 2. Patient reports symptomatic improvement. ACS unlikely at this time. Plan for discharge with close return precautions, PCP follow up. Discharge - Discharge Information Problems reviewed: Yes Clinical Impression/Diagnosis: Chest pain Qualifiers: Chest pain type: unspecified Qualified Code(s): R07.9 - Chest pain, unspecified Condition: Stable Disposition: HOME - Admission No - Follow up/Referral - Patient Discharge Instructions Patient Printed Discharge Instructions: DI for Atypical Chest Pain Additional Instructions: You were seen in the ER for chest pain. Your bloodwork was normal. Your EKG was normal as well. Please be sure to follow up with your primary care provider as soon as possible, in the next 2-3 days. Return to the ER if you develop worsening pain, difficulty breathing, vision changes. - Post Discharge Activity
[2019-11-29] MEDS ORDERED: KETOROLAC TROMETHAMINE 30 MG/1 ML VIAL ONE (15:21)
--- NOTE | 2019-11-29 15:23 | PDOC ---
Attending Attestation - Resident Resident Name: Gerardo Shaw - ED Attending Attestation I have performed the following: I have examined & evaluated the patient, The case was reviewed & discussed with the resident, I agree w/resident's findings & plan - HPI HPI: 11/29/19 16:57 49M w/hx opiate use disorder (in remission, on methadone - last dose today) p/w 3 days of intermittent nonexertional chest pain, left sided, migratory; denies exacerbating or alleviating factors. tried simethicone occasionally, with minimal relief. he feels "gassy." noted some loose stools/diarrhea over the last few days as well. nonbloody. no trauma no cough or congestion, f/c, SOB,, n/v, urinary sx. chronic track grullon in BLE. 11/29/19 17:19 11/29/19 17:26 - Physicial Exam PE: 11/29/19 15:22 General: Well appearing, awake and alert, NAD. HEENT: NCAT, PERRL, EOMI, clear conjunctiva, anicteric, moist mucous membranes, clear oropharynx, no oral lesions.. Neck: neck supple, FROM Resp: CTAB, normal and even respirations, no respiratory distress CVS: RRR, no murmurs, 2+ peripheral pulses throughout, no peripheral edema Chest: nontender Abdomen: soft, NTND, no rebound or guarding. No CVAT. Back: nontender, normal inspection and ROM] MSK: no edema, PICKETT x4, ROM intact. No clubbing or cyanosis. normal bulk and tone. Extremities: no calf tenderness; BLE track grullon, nontender Neuro: alert, oriented appropriately; no focal neurologic deficits Skin: warm and well perfused, cap refill <2 sec, normal color 11/29/19 17:23 - Medical Decision Making 11/29/19 15:22 Vital Signs Temp Pulse Resp BP Pulse Ox 98 F 69 18 130/82 99 11/29/19 14:34 11/29/19 14:34 11/29/19 14:34 11/29/19 14:34 11/29/19 14:34 vitals reviewed, wnl DDx chest pain: ACS, coronary vasospasm, NSTEMI, arrhythmia, unstable angina, PE, dissection, PUD, esophageal spasm, GERD, gastritis, costochondritis, pneumonia, pleurisy, pericarditis/myocarditis. dehydration, electrolyte/metabolic derangements. Considered but clinically doubt based on HPI and PE: Low suspicion for pulmonary embolism or dissection. Chest pain negative: No evidence of ACS, pericarditis, myocarditis, pulmonary embolism, pneumothorax, pneumonia, Zoster, or esophageal perforation. Historically not abrupt in onset, tearing or ripping, pulses symmetric, no evidence of aortic dissection. Interpreted by ED Physician: CXR (1 view): no acute abnormality: no infiltrates, bones appear intact and structures normal alignment, cardiac silhouette within normal limits. no free air under diaphragm, no pneumothorax. EKG normal sinus rhythm, no interval abnormalities, narrow QRS, ST and T wave segments and morphology normal. Nonspecific T wave abnormalities, unchanged from prior Chest pain HEART score 2 which denotes Low risk and probability for ACS, less than 1.7% risk for MACE at 4-6 wks labs and lytes wnl trop is neg, reassuring unlikely ACS or arrhythmia given GI cocktail, pepcid, tylenol/toradol, reassess Pt to be discharged in stable condition. Patient and family made aware of clinical impression, treatment recommendations and disposition plan, return precautions discussed (including but not limited to new or persistent/worsening symptoms, pain, fevers, or signs of infection, chest pain, respiratory distress, inability to tolerate oral intake, dehydration, syncope, or neurologic changes). Follow up with PMD and/or specialist as recommended, follow up information provided, take medications as instructed for duration of time. continue with supportive care, avoid triggers and precipitants. All questions answered to patient's satisfaction and expressed understanding and comfort with this. At the time of discharge, the patient is alert, clinically improved, tolerating po and verbalizes understanding of instructions, satisfied with the care received and felt comfortable with the plan. Patient does not suffer from an acute life- threatening medical condition at this time and is safe for outpatient follow- up. 11/29/19 16:57 11/29/19 17:25 Heart Score/ECG Review - History History: Slightly suspicious - Electrocardiogram EKG: Normal - Age Age: 45-65 - Risk Factors Risk Factors Heart Score: Yes Hx Obesity Based on the list above the patient has:: 1-2 risk factors - Troponin Troponin: </= normal limit - Score Heart Score - Total: 2 #1 ECG reviewed & interpreted by me at: 14:35 General ECG Interpretation: Sinus Rhythm, Normal Rate, Normal Intervals 11/29/19 15:21 EKG normal sinus rhythm 64 bpm, no interval abnormalities, narrow QRS, ST and T wave segments and morphology normal. Discharge - Discharge Information Problems reviewed: Yes Clinical Impression/Diagnosis: Chest pain Qualifiers: Chest pain type: unspecified Qualified Code(s): R07.9 - Chest pain, unspecified Condition: Stable Disposition: HOME - Admission No - Follow up/Referral - Patient Discharge Instructions Patient Printed Discharge Instructions: DI for Atypical Chest Pain Additional Instructions: You were seen in the ER for chest pain. Your bloodwork was normal. Your EKG was normal as well. Please be sure to follow up with your primary care provider as soon as possible, in the next 2-3 days. Return to the ER if you develop worsening pain, difficulty breathing, vision changes. - Post Discharge Activity
[2019-11-29 16:15] LABS: HEMATOCRIT 42.7 % (35.4-49); HEMOGLOBIN 14.4 GM/dL (11.7-16.9); MCH 26.2 pg (25.7-33.7); MCHC 33.7 g/dl (32.0-35.9); MEAN CELL VOLUME 77.7 fl (80-96); MEAN PLT VOLUME 7.3 fl (7.5-11.1); MONO % 7.9 % (3.8-10.2); NEUT % 60.1 % (42.8-82.8); PLATELET COUNT 267 K/MM3 (134-434); RBC 5.49 M/mm3 (4.00-5.60); RDW 14.7 % (11.9-15.9)
[2019-11-29 16:43] LABS: ALBUMIN 3.5 g/dl (3.4-5.0); ALK PHOS 87 U/L (45-117); ANION GAP 7 MMOL/L (8-16); BILIRUBIN,TOTAL 0.6 mg/dL (0.2-1); BLOOD UREA NITROGEN 9.6 mg/dL (7-18); CALCIUM 8.3 mg/dL (8.5-10.1); CHLORIDE 104 mmol/L (98-107); CO2 28 mmol/L (21-32); CREATININE 1.2 mg/dL (0.55-1.3); GLUCOSE,RANDOM 95 mg/dL (74-106); MAGNESIUM 2.3 mg/dL (1.8-2.4); POTASSIUM 4.2 mmol/L (3.5-5.1); SGOT/AST 26 U/L (15-37); SGPT/ALT 36 U/L (13-61); SODIUM 139 mmol/L (136-145); TOT PROT 7.3 g/dl (6.4-8.2)
[2019-11-29] MEDS ORDERED: MAG HYDROX/AL HYDROX/SIMETH -MYLANTA- ORAL SUSPENSION PO ONE (17:13)
[2019-11-29] MEDS ORDERED: ACETAMINOPHEN 325 MG TABLET (FP) PO ONE (17:13)
[2019-11-29] MEDS ORDERED: FAMOTIDINE 20 MG TABLET PO ONE (17:13)
[2019-11-29] MEDS ORDERED: FAMOTIDINE 20 MG TABLET ONE (17:43)
[2019-11-29] MEDS ORDERED: MAG HYDROX/AL HYDROX/SIMETH 30 ML UNIT-DOSE CUP ONE (17:43)
[2019-11-29] MEDS ORDERED: ACETAMINOPHEN 325 MG TABLET (FP) ONE (17:43)
[2019-11-29 17:49] VITALS: BP 157/94; PULSE 52
--- NOTE | 2019-11-30 09:37 | EKG ---
Test Reason : Blood Pressure : / mmHG Vent. Rate : 064 BPM Atrial Rate : 064 BPM P-R Int : 182 ms QRS Dur : 110 ms QT Int : 450 ms P-R-T Axes : 050 016 044 degrees QTc Int : 464 ms NORMAL SINUS RHYTHM NORMAL ECG WHEN COMPARED WITH ECG OF 17-FEB-2019 10:04, NO SIGNIFICANT CHANGE WAS FOUND Confirmed by Yves Ding ([id number]) on 11/30/2019 9:37:30 AM Referred By: Confirmed By:Yves Ding
== END 2019-11-29 18:00 | disposition home or self-care (01) ==
LOC: JER 14:32
DX: R07.9 Chest pain, unspecified (principal)
CPT/HCPCS: 36415; 71046-TC-FY; 80053; 82550; 82553; 83735; 84484; 85025; 93005; 93010; 99285-25

== ENCOUNTER 2020-02-04 11:03 | Emergency (ER) | payer OTHER ==
[2020-02-04 11:09] VITALS: BP 115/83; PULSE 80; TEMP 97.9; BMI 31.4
[2020-02-04] MEDS ORDERED: TETRACAINE 0.5% OPHTH SOLN 2 ML BOTTLE ONE (11:26)
[2020-02-04] MEDS ORDERED: FLUORESCEIN NA 1 EA STRIP ONE (11:26)
[2020-02-04] MEDS ORDERED: FLUORESCEIN NA 1 EA STRIP OD ONE (11:34)
[2020-02-04] MEDS ORDERED: DIPHTH,PERTUSS(ACELL),TET 0.5 ML DISP.SYRIN IM ONE ×2 (11:35→11:39)
[2020-02-04] MEDS ORDERED: TETRACAINE 0.5% HCL 0.6ML DROPPER.BOTTLE OD ONE (11:35)
--- NOTE | 2020-02-04 11:38 | PDOC ---
History of Present Illness - General Chief Complaint: Foreign Body (FB) Stated Complaint: R/EYE PROBLEM Time Seen by Provider: 02/04/20 11:24 History Source: Patient Exam Limitations: No Limitations - History of Present Illness Initial Comments: 02/04/20 11:36 49-year-old male denies past medical history, does not wear corrective lenses presents complaining of foreign body sensation and pain to right eye with tearing. Reports hanging something in a ceiling approximately 1 hour ago, not wearing protective eye wear when he felt as " dust entered my eye ". Did not take any pain medication, unsure if tetanus is up-to-date. Denies any other injuries or complaints. ROS: as above PE: GENERAL: well-appearing, NAD HEAD: NCAT EYES: VA OD 20/25, OS 20/25, OU 20/25, Pupils equal, round and reactive to light, sclera anicteric, + fluorescein uptake to center of cornea, no foreign body noted to cornea, no foreign body upon flipping upper eyelid noted ENT: pharynx: no erythema, no exudate, uvula midline NECK: supple CHEST: nontender RESP: clear, no w/r/r CARDIO: rrr, no m/g/r ABD: +BS, soft, nontender, non distended BACK: no midline spinal ttp, no CVAT EXTREMITIES: Normal range of motion, no edema NEUROLOGICAL: Normal speech, normal gait SKIN: Warm, Dry Is this a multiple visit Asthma Patient?: No Past History - Medical History Allergies/Adverse Reactions: Allergies Allergy/AdvReac Type Severity Reaction Status Date / Time amoxicillin Allergy Nausea Verified 11/29/19 14:40 Home Medications: Ambulatory Orders Methadone [Dolophine -] 150 mg PO DAILY@0600 tablet 02/10/15 Sertraline HCl [Zoloft] 100 mg PO DAILY 03/01/15 Zolpidem Tartrate [Ambien] 10 mg PO HS 03/01/15 Omeprazole 20 mg PO DAILY 06/22/15 Alprazolam [Xanax] 0.5 mg PO Q8H PRN #0 tablet 06/27/15 Ibuprofen [Motrin -] 600 mg PO Q6H PRN #0 tablet 06/27/15 Ibuprofen [Motrin -] 600 mg PO QID #28 tablet 05/04/17 Sulfamethoxazole/Trimethoprim [Bactrim DS -] 1 each PO BID #14 tablet 01/30/19 Acetaminophen 650 mg PO TID PRN #24 tablet 11/29/19 Famotidine/Ca Carb/Mag Hydrox [Pepcid Complete Tablet Chew] 1 each PO BID PRN 4 Days #8 tab.chew 11/29/19 Mag Hydrox/Aluminum Hyd/Simeth [Maalox Advanced Suspension] 148 ml GT DAILY 4 Days #4 oral.susp 11/29/19 Erythromycin 0.5% Eye Ointment [Erythromycin 0.5% Eye Ointment -] 1 applic OD TID #1 tube 02/04/20 Anemia: No Asthma: No Cancer: No Cardiac Disorders: No CVA: No COPD: No CHF: No Dementia: No Diabetes: No GI Disorders: No Disorders: No HTN: No Hypercholesterolemia: No Kidney Stones: No Liver Disease: No Psychiatric Problems: Yes (depression) Seizures: No Thyroid Disease: No - Surgical History Abdominal Surgery: No Appendectomy: No Cardiac Surgery: No Cholecystectomy: No Lung Surgery: No Neurologic Surgery: No Orthopedic Surgery: Yes (Left eye socket metal plate) - Reproductive History Testicular Surgery: No - Immunization History Immunization Up to Date: Yes - Psycho-Social/Smoking History Smoking History: Never smoked Have you smoked in the past 12 months: No Number of Cigarettes Smoked Daily: 5 Information on smoking cessation initiated: No 'Breaking Loose' booklet given: 01/27/19 - Substance Abuse Hx (Audit-C & DAST Scrn) How often the patient has a drink containing alcohol: Never Score: In Men: 4 or > Positive; In Women: 3 or > Positive: 0 Screen Result (Pos requires Nsg. Audit-10AR): Negative In the last yr the pt used illegal drug/Rx for NonMed reason: No Score: Yes response is considered Positive: 0 Screen Result (Positive result requires Nsg. DAST-10): Negative *Physical Exam - Vital Signs Last Vital Signs Temp Pulse Resp BP Pulse Ox 97.9 F 80 18 115/83 98 02/04/20 11:06 02/04/20 11:06 02/04/20 11:06 02/04/20 11:06 02/04/20 11:06 Medical Decision Making - Medical Decision Making 02/04/20 11:57 49-year-old male denies past medical history, does not wear corrective lenses presents complaining of foreign body sensation and pain to right eye with tearing. Reports hanging something in a ceiling approximately 1 hour ago, not wearing protective eye wear when he felt as " dust entered my eye ". Did not take any pain medication, unsure if tetanus is up-to-date. Denies any other injuries or complaints. Corneal abrasion to right eye Erythromycin ophthalmologic ointment applied in the ED Tetanus updated today Prescription for erythromycin ophthalmologic ointment sent to pharmacy Advised patient to follow-up with an body sander within 1 to 2 days Discharge - Discharge Information Problems reviewed: Yes Clinical Impression/Diagnosis: Corneal abrasion, right Qualifiers: Encounter type: initial encounter Qualified Code(s): S05.01XA - Injury of conjunctiva and corneal abrasion without foreign body, right eye, initial encounter Condition: Stable Disposition: HOME - Admission No - Additional Discharge Information Prescriptions: Erythromycin 0.5% Eye Ointment [Erythromycin 0.5% Eye Ointment -] 1 applic OD TID #1 tube - Follow up/Referral Referrals: Krish Kitchen MD [Primary Care Provider] - Eliot Robbins MD [Staff Physician] - Leobardo Jerome MD [Staff Physician] - - Patient Discharge Instructions Patient Printed Discharge Instructions: DI for Corneal Abrasion Additional Instructions: Apply erythromycin ophthalmologic ointment to right eye 3 times a day You must follow-up with an body sander within 1 to 2 days - Post Discharge Activity
[2020-02-04] MEDS ORDERED: ERYTHROMYCIN 0.5% OPHTHALMIC OINTMENT 3.5 GM TUBE OD ONE (11:54)
[2020-02-04] MEDS ORDERED: ERYTHROMYCIN 0.5% OPHTHALMIC OINTMENT 3.5 GM TUBE ONE (12:04)
[2020-02-04] MEDS ORDERED: KETOROLAC TROMETHAMINE 30 MG/1 ML VIAL IM ONE (12:17)
[2020-02-04] MEDS ORDERED: KETOROLAC TROMETHAMINE 30 MG/1 ML VIAL ONE (12:21)
== END 2020-02-04 12:33 | disposition home or self-care (01) ==
LOC: JERFT 11:03
PROC: 3E0233Z Introduction of Anti-inflammatory into Muscle, Percutaneous Approach (ICD-10-PCS; principal; 2020-02-04)
PROC: 3E0234Z Introduction of Serum, Toxoid and Vaccine into Muscle, Percutaneous Approach (ICD-10-PCS; 2020-02-04)
DX: S05.01XA Injury of conjunctiva and corneal abrasion without foreign body, right eye, initial encounter (principal)
CPT/HCPCS: 90715; 99284-25

== ENCOUNTER 2023-09-28 07:25 | Inpatient (IN) | payer OTHER ==
[2023-09-28 07:32] VITALS: RESP 18; TEMP 98.1; BMI 27.1
[2023-09-28] MEDS ORDERED: FAMOTIDINE 20 MG/50 ML IVPB 20 MG/50 ML MG IVPB ONE (07:56)
[2023-09-28] MEDS ORDERED: ONDANSETRON 4 MG/2 ML VIAL ONE (07:56)
[2023-09-28] MEDS ORDERED: ACETAMINOPHEN INJECTION 100 ML IVPB ONE (07:56)
[2023-09-28] MEDS: SODIUM CHLORIDE 0.9% 500 ML INFUS.BAG IV ONE ×2 (08:30→11:15)
[2023-09-28] MEDS: ONDANSETRON 4 MG/2 ML VIAL IVPUSH ONE (08:30)
[2023-09-28] MEDS: ACETAMINOPHEN 1000 MG/100 ML BAG IVPB ONE (08:30)
[2023-09-28] MEDS: FAMOTIDINE 20 MG/50 ML IVPB 20 MG/50 ML MG IVPB ONE (08:30)
[2023-09-28 08:54] LABS: BASO % 0.9 % (0-2.0); HEMATOCRIT 29.8 % (35.4-49); HEMOGLOBIN 9.9 GM/dL (11.7-16.9); LYMPH % 11.7 % (8-40); MCH 23.3 pg (25.7-33.7); MCHC 33.1 g/dl (32.0-35.9); MEAN CELL VOLUME 70.3 fl (80-96); MEAN PLT VOLUME 6.5 fl (7.5-11.1); MONO % 6.7 % (3.8-10.2); NEUT % 79.7 % (42.8-82.8); PLATELET COUNT 277 10^3/uL (134-434); RBC 4.24 M/mm3 (4.00-5.60); RDW 16.6 % (11.9-15.9); WHITE BLOOD COUNT 7.5 K/mm3 (4.0-10.0)
[2023-09-28 09:01] LABS: INR 1.1 (0.83-1.09); PROTHROMBIN TIME (PATIENT) 12.4 SEC (9.7-13.0)
[2023-09-28 09:04] LABS: ACTIVATED PTT 31.8 SECONDS (25.2-36.5)
[2023-09-28 09:16] LABS: ALBUMIN 3.2 g/dl (3.4-5.0); BLOOD UREA NITROGEN 14.9 mg/dL (7-18); CALCIUM 8.6 mg/dL (8.5-10.1)
[2023-09-28 09:19] LABS: CREATININE 1.1 mg/dL (0.55-1.3)
[2023-09-28 09:22] LABS: BILIRUBIN,TOTAL 0.7 mg/dL (0.2-1); TOT PROT 7.2 g/dl (6.4-8.2)
[2023-09-28] MEDS ORDERED: ACETAMINOPHEN 500 MG TABLET (FP) PO PRN (12:08)
[2023-09-28] MEDS ORDERED: METOCLOPRAMIDE HCL INJECTION 10 MG/2 ML VIAL ONE (13:00)
[2023-09-28] MEDS: KETOROLAC TROMETHAMINE 15 MG/ML VIAL IVPUSH ONE (13:00)
[2023-09-28] MEDS ORDERED: KETOROLAC TROMETHAMINE 15 MG/ML VIAL ONE (13:00)
[2023-09-28] MEDS: METOCLOPRAMIDE HCL INJECTION 10 MG/2 ML VIAL IVPUSH ONE (13:10)
[2023-09-28] MEDS: DEXTROSE 5%-LACTATED RINGERS 1,000 ML IV SCH (13:24)
[2023-09-28] MEDS: LACTATED RINGERS SOLUTION 1,000 ML/1,000 ML INFUS.BAG IV SCH (13:25)
[2023-09-28] MEDS: BISACODYL 5 MG TABLET.DR (FP) PO ONE (13:30)
[2023-09-28] MEDS: SENNOSIDES/DOCUSATE COMBO (SENNA PLUS) TABLET (UD) PO SCH (13:30)
[2023-09-28 14:32] VITALS: BP 170/109; PULSE 55
[2023-09-28] MEDS ORDERED: ZOLPIDEM TARTRATE 5 MG TABLET PO PRN (22:00)
[2023-09-28] MEDS ORDERED: QUEtiapine FUMARATE 100 MG TABLET (FP) PO SCH (22:00)
== END 2023-09-28 16:21 | disposition home or self-care (01) | DRG 392 ==
LOC: JER 07:25 → JERBED 11:55
PROVIDERS: ADMIT Internal Medicine; ATTEND Internal Medicine
DX: K59.00 Constipation, unspecified (principal); F11.20 Opioid dependence, uncomplicated; R10.9 Unspecified abdominal pain; F17.210 Nicotine dependence, cigarettes, uncomplicated
CPT/HCPCS: 36415; 71045-TC-FY; 74177-TC; 80053; 83605; 83690; 84484; 85025; 85610; 85730; 86850; 86900; 86901; 87040; 93005; 93010; 99285-25; J0131